=== PATIENT | male | born 1945 | race Caucasian/White ===

== ENCOUNTER 2018-07-06 00:41 | Inpatient (IN) | payer MEDICARE ==
[~2018-07-06] VITALS: Ht 188 cm; Wt 72.7 kg
[2018-07-06] MEDS ORDERED: MAGNESIUM HYDROXIDE 2,400 MG/30 ML ORAL.SUSP. PO PRN (01:00)
[2018-07-06] MEDS ORDERED: METHYL SALICYLATE/MENTHOL TOPICAL OINTMENT 29GM TUBE. TP PRN (01:00)
[2018-07-06] MEDS ORDERED: MAG HYDROX/AL HYDROX/SIMETH 30 ML ORAL.SUSP PO PRN (01:00)
[2018-07-06] MEDS ORDERED: ACETAMINOPHEN 325 MG TABLET PO PRN (01:00)
[2018-07-06] MEDS ORDERED: ALPR0.5T6 PO (01:14)
[2018-07-06] MEDS ORDERED: MEMA10TA PO (01:14)
[2018-07-06] MEDS ORDERED: CITA20TA6 PO (01:14)
[2018-07-06] MEDS ORDERED: OLAN10VI2 IM (01:14)
[2018-07-06] MEDS ORDERED: QUET50TA5 PO (01:14)
[2018-07-06] MEDS ORDERED: HALO5AMP2 IM (01:14)
[2018-07-06] MEDS ORDERED: CETI10TA16 PO (01:14)
[2018-07-06] MEDS ORDERED: DIVA500T17 PO (01:14)
[2018-07-06] MEDS ORDERED: RIVA1PAT22 TD (01:14)
[2018-07-06 01:19] VITALS: BP 176/75
[2018-07-06 05:48] VITALS: BP 164/82
[2018-07-06 08:13] LABS: BASO # 0.1 x10^3/uL (0.0-0.2); BASO % 1 % (0-3); EOS # 0.1 x10^3/uL (0.0-0.7); EOS % 1 % (0-3); HEMATOCRIT 45.3 % (39.0-53.0); HEMOGLOBIN 15.2 g/dL (13.0-17.5); LYMPH # 1.4 x10^3/uL (1.0-4.8); LYMPH % 24 % (24-48); MEAN CORPUSCULAR HEMOGLOBIN 31 pg (25-35); MEAN CORPUSCULAR HGB CONC 34 g/dL (31-37); MEAN CORPUSCULAR VOLUME 91 fL (79-100); MONO # 0.6 x10^3/uL (0.0-1.1); MONO % 9 % (0-9); NEUT # 3.8 x10^3uL (1.8-7.7); NEUT % 65 % (31-73); PLATELET COUNT 87 x10^3/uL (140-400); RED BLOOD COUNT 4.98 x10^6/uL (4.30-5.70); RED CELL DISTRIBUTION WIDTH 13.5 % (11.5-14.5); WHITE BLOOD COUNT 5.9 x10^3/uL (4.0-11.0)
[2018-07-06 08:30] LABS: ALBUMIN 3.5 g/dL (3.4-5.0); ALBUMIN/GLOBULIN RATIO 0.9 (1.0-1.7); CALCIUM 8.8 mg/dL (8.5-10.1); CREATININE 0.8 mg/dL (0.7-1.3); GFR 95.3; MAGNESIUM 2.2 mg/dL (1.8-2.4); POTASSIUM 3.8 mmol/L (3.5-5.1); TOTAL BILIRUBIN 1.2 mg/dL (0.2-1.0); TOTAL PROTEIN 7.2 g/dL (6.4-8.2)
[2018-07-06 08:33] LABS: VAL ACID 42 mcg/mL (50-100)
[2018-07-06] MEDS ORDERED: DIVALPROEX SODIUM 250 MG TABLET.DR. PO SCH (09:00)
[2018-07-06] MEDS: ALPRAZolam 0.5 MG TABLET PO SCH ×3 (09:46→19:45)
[2018-07-06] MEDS: CETIRIZINE HCL 10 MG TABLET PO SCH (09:46)
[2018-07-06] MEDS: MEMANTINE 10 MG TABLET. PO SCH ×2 (09:46→19:45)
[2018-07-06] MEDS: CITALOPRAM 20 MG TABLET. PO SCH (09:46)
[2018-07-06] MEDS: QUEtiapine 50 MG TABLET. PO SCH ×2 (09:46→19:45)
[2018-07-06] MEDS: DIVALPROEX 125 MG CAP.SPRINK PO SCH ×2 (09:47→19:46)
[2018-07-06] MEDS: RIVASTIGMINE 4.6MG PATCH. TD SCH (09:47)
[2018-07-06 10:29] LABS: THYROID STIM HORMONE (TSH) 1.576 uIU/mL (0.358-3.740)
[2018-07-06 13:07] LABS: THYROXINE 6.1 ug/dL (4.5-12.0)
[2018-07-06 14:02] LABS: BACTERIA,URINE 0 /HPF (0-FEW); BILIRUBIN,URINE MOD (NEG); CLARITY,URINE CLEAR; COLOR,URINE AMBER; GLUCOSE,URINE NEG (NEG); HYALINE CASTS, URINE MANY /HPF; NITRITE,URINE NEG (NEG); RBC,URINE 0 /HPF (0-2); UROBILINOGEN,URINE 1 mg/dL (0.2 mg/dL)
[2018-07-06 16:22] VITALS: BP 101/71
--- NOTE | 2018-07-06 19:53 | PDOC ---
Exam Note: Uriah Note: Please also refer to the separate dictated note~for this date of service dictated separately.~Patient seen individually. Discussed the patient with Nursing staff reviewed the chart.~Reviewed interim history and current functioning. Reviewed vital signs,~Labs/ Radiology~and current medications noted below. Continue current treatment with the changes noted in the dictated addendum note Assessment: Vital Signs: Vital Signs Date Time Temp Pulse Resp B/P (MAP) Pulse Ox O2 Delivery O2 Flow Rate FiO2 07/06/18 16:22 97.1 78 16 101/71 (81) 96 Room Air I&O Intake and Output 07/06/18 07:00 # Voids 1 Labs: Laboratory Tests Test 07/06/18 07:55 07/06/18 13:30 White Blood Count 5.9 x10^3/uL (4.0-11.0) Red Blood Count 4.98 x10^6/uL (4.30-5.70) Hemoglobin 15.2 g/dL (13.0-17.5) Hematocrit 45.3 % (39.0-53.0) Mean Corpuscular Volume 91 fL (79-100) Mean Corpuscular Hemoglobin 31 pg (25-35) Mean Corpuscular Hemoglobin Concent 34 g/dL (31-37) Red Cell Distribution Width 13.5 % (11.5-14.5) Platelet Count 87 x10^3/uL (140-400) L Neutrophils (%) (Auto) 65 % (31-73) Lymphocytes (%) (Auto) 24 % (24-48) Monocytes (%) (Auto) 9 % (0-9) Eosinophils (%) (Auto) 1 % (0-3) Basophils (%) (Auto) 1 % (0-3) Neutrophils # (Auto) 3.8 x10^3uL (1.8-7.7) Lymphocytes # (Auto) 1.4 x10^3/uL (1.0-4.8) Monocytes # (Auto) 0.6 x10^3/uL (0.0-1.1) Eosinophils # (Auto) 0.1 x10^3/uL (0.0-0.7) Basophils # (Auto) 0.1 x10^3/uL (0.0-0.2) Sodium Level 144 mmol/L (136-145) Potassium Level 3.8 mmol/L (3.5-5.1) Chloride Level 108 mmol/L (98-107) H Carbon Dioxide Level 27 mmol/L (21-32) Anion Gap 9 (6-14) Blood Urea Nitrogen 12 mg/dL (8-26) Creatinine 0.8 mg/dL (0.7-1.3) Estimated GFR (Cockcroft-Gault) 95.3 BUN/Creatinine Ratio 15 (6-20) Glucose Level 81 mg/dL (70-99) Calcium Level 8.8 mg/dL (8.5-10.1) Magnesium Level 2.2 mg/dL (1.8-2.4) Iron Level 72 ug/dL (65-175) Total Iron Binding Capacity 274 ug/dL (250-450) Iron Saturation 26 % (15-34) Total Bilirubin 1.2 mg/dL (0.2-1.0) H Aspartate Amino Transferase (AST) 115 U/L (15-37) H Alanine Aminotransferase (ALT) 60 U/L (16-63) Alkaline Phosphatase 66 U/L (46-116) Total Protein 7.2 g/dL (6.4-8.2) Albumin 3.5 g/dL (3.4-5.0) Albumin/Globulin Ratio 0.9 (1.0-1.7) L Triglycerides Level 51 mg/dL (0-150) Cholesterol Level 205 mg/dL (0-200) H LDL Cholesterol, Calculated 109 mg/dL (0-100) H VLDL Cholesterol, Calculated 10 mg/dL (0-40) Non-HDL Cholesterol Calculated 119 mg/dL (0-129) HDL Cholesterol 86 mg/dL (40-60) H Cholesterol/HDL Ratio 2.0 Thyroid Stimulating Hormone (TSH) 1.576 uIU/mL (0.358-3.740) Thyroxine (T4) 6.1 ug/dL (4.5-12.0) Total Triiodothyronine (TT3) 73 ng/dL (71-180) Valproic Acid Level 42 mcg/mL (50-100) L Valproic Acid Last Dose Date 07/05/18 Valproic Acid Last Dose Time 2100 Urine Collection Type U cath Urine Color [place] Urine Clarity Clear Urine pH 5.5 Urine Specific [place] >=1.030 Urine Protein Trace (NEG-TRACE) Urine Glucose (UA) Neg mg/dL (NEG) Urine Ketones (Stick) >=160 mg/dL (NEG) Urine Blood Neg (NEG) Urine Nitrite Neg (NEG) Urine Bilirubin Mod (NEG) Urine Urobilinogen Dipstick 1 mg/dL (0.2 mg/dL) Urine Leukocyte Esterase Neg (NEG) Urine RBC 0 /HPF (0-2) Urine WBC 1-4 /HPF (0-4) Urine Squamous Epithelial Cells None /LPF Urine Bacteria 0 /HPF (0-FEW) Urine Hyaline Casts Many /HPF Urine Mucus Marked /LPF Current Medications: Meds: Current Medications Acetaminophen (Tylenol) 650 mg PRN Q6HRS PRN PO PAIN / TEMP; Start 07/06/18 at 01:00 Multi-Ingredient Ointment (Analgesic [place]) 1 lawrence PRN QID PRN TP MUSCLE PAIN; Start 07/06/18 at 01:00 Al Hydroxide/Mg Hydroxide (Mylanta Plus Xs) 15 ml PRN AFTMEALHC PRN PO DYSPEPSIA; Start 07/06/18 at 01:00 Magnesium Hydroxide (Milk Of Magnesia) 2,400 mg PRN QHS PRN PO CONSTIPATION; Start 07/06/18 at 01:00 Citalopram Hydrobromide (CeleXA) 20 mg DAILY PO Last administered on 07/06/18at 09:46; Start 07/06/18 at 09:00 Alprazolam (Xanax) 0.5 mg TID PO Last administered on 07/06/18at 19:45; Start 07/06/18 at 09:00 Divalproex Sodium (Depakote) 500 mg BID PO ; Start 07/06/18 at 09:00; Stop at 09:31; Status DC Memantine (Namenda) 10 mg BID PO Last administered on 07/06/18at 19:45; Start 07/06/18 at 09:00 Quetiapine Fumarate (SEROquel) 50 mg BID PO Last administered on 07/06/18at 19:45 ; Start 07/06/18 at 09:00 Rivastigmine (Exelon) 1 patch DAILY TD Last administered on 07/06/18at 09:47; Start 07/06/18 at 09:00 Cetirizine HCl (ZyrTEC) 10 mg DAILY PO Last administered on 07/06/18at 09:46; Start 07/06/18 at 09:00 Divalproex Sodium (Depakote Sprinkles) 500 mg BID PO Last administered on at 19:46; Start 07/06/18 at 09:45 Olanzapine (ZyPREXA ZYDIS) 2.5 mg PRN Q2HR PRN PO PSYCHOSIS Last administered on 07/06/18at 14:42; Start 07/06/18 at 14:15 Active Scripts Active Reported Olanzapine Inj (Olanzapine) 10 Mg Vial 5 Mg IM PRN Q8HRS PRN Cetirizine Hcl 10 Mg Tablet 10 Mg PO DAILY EXELON 4.6mg/24hr (Rivastigmine) 1 Each Patch.td24 1 Patch TD DAILY Seroquel (Quetiapine Fumarate) 50 Mg Tablet 50 Mg PO BID Namenda (Memantine Hcl) 10 Mg Tablet 10 Mg PO BID Divalproex Sodium Er (Divalproex Sodium) 500 Mg Tab.er.24h 500 Mg PO BID Haldol (Haloperidol Lactate) 5 Mg/1 Ml Ampul 2.5 Mg IM PRN Q6HRS PRN Alprazolam 0.5 Mg Tablet 0.5 Mg PO TID Citalopram Hbr (Citalopram Hydrobromide) 20 Mg Tablet 20 Mg PO DAILY I have reviewed the current psychotropics carefully including drug interactions. Risk benefit ratio favors no change other than as noted in my dictated progress note. Diagnosis: Problems: (1) Anxiety disorder (2) Dementia in Alzheimer's disease with delusions (3) Dementia in Alzheimer's disease with depression (4) Dementia, vascular, with delusions (5) Dementia, vascular, with depression (6) Dementia of the Alzheimer's type with early onset with behavioral disturbance (7) Impulse control disorder SHAW CERRATO MD Jul 06, 2018 19:53
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
[2018-07-07 06:30] VITALS: BP 139/89
[2018-07-07] MEDS: DIVALPROEX 125 MG CAP.SPRINK PO SCH ×2 (09:15→19:44)
[2018-07-07] MEDS: CITALOPRAM 20 MG TABLET. PO SCH (09:15)
[2018-07-07] MEDS: QUEtiapine 50 MG TABLET. PO SCH ×2 (09:16→19:44)
[2018-07-07] MEDS: RIVASTIGMINE 4.6MG PATCH. TD SCH (09:16)
[2018-07-07] MEDS: CETIRIZINE HCL 10 MG TABLET PO SCH (09:16)
[2018-07-07] MEDS: MEMANTINE 10 MG TABLET. PO SCH ×2 (09:16→19:44)
[2018-07-07] MEDS: ALPRAZolam 0.5 MG TABLET PO SCH ×3 (09:16→19:47)
[2018-07-07 13:13] LABS: HEMOGLOBIN A1C 5.2 % (4.8-5.6)
[2018-07-07 16:08] VITALS: BP 122/67
[2018-07-07] MEDS: CHOLECALCIFEROL (VITAMIN D3) 50,000 UNIT CAPSULE PO SCH (17:12)
[2018-07-07] MEDS: hydrOXYzine HCL 25 MG TABLET PO PRN (17:25)
[2018-07-07] MEDS: TAMSULOSIN 0.4 MG CAP.ER.24H. PO SCH (19:47)
--- NOTE | 2018-07-07 21:16 | PDOC ---
Exam Note: Uriah Note: Please also refer to the separate dictated note~for this date of service dictated separately.~Patient seen individually. Discussed the patient with Nursing staff reviewed the chart.~Reviewed interim history and current functioning. Reviewed vital signs,~Labs/ Radiology~and current medications noted below. Continue current treatment with the changes noted in the dictated addendum note Assessment: Vital Signs: Vital Signs Date Time Temp Pulse Resp B/P (MAP) Pulse Ox O2 Delivery O2 Flow Rate FiO2 07/07/18 16:08 97.7 51 18 122/67 (85) 96 07/07/18 06:30 Room Air I&O Intake and Output 07/07/18 07:00 Intake Total 900 ml Balance 900 ml Intake Oral 900 ml Current Medications: Meds: Current Medications Acetaminophen (Tylenol) 650 mg PRN Q6HRS PRN PO PAIN / TEMP; Start 07/06/18 at 01:00 Multi-Ingredient Ointment (Analgesic [place]) 1 lawrence PRN QID PRN TP MUSCLE PAIN; Start 07/06/18 at 01:00 Al Hydroxide/Mg Hydroxide (Mylanta Plus Xs) 15 ml PRN AFTMEALHC PRN PO DYSPEPSIA; Start 07/06/18 at 01:00 Magnesium Hydroxide (Milk Of Magnesia) 2,400 mg PRN QHS PRN PO CONSTIPATION; Start 07/06/18 at 01:00 Citalopram Hydrobromide (CeleXA) 20 mg DAILY PO Last administered on 07/07/18at 09:15; Start 07/06/18 at 09:00 Alprazolam (Xanax) 0.5 mg TID PO Last administered on 07/07/18at 19:47; Start 07/06/18 at 09:00 Divalproex Sodium (Depakote) 500 mg BID PO ; Start 07/06/18 at 09:00; Stop at 09:31; Status DC Memantine (Namenda) 10 mg BID PO Last administered on 07/07/18 19:44; Start 07/06/18 at 09:00 Quetiapine Fumarate (SEROquel) 50 mg BID PO Last administered on 07/07/18 19:44 ; Start 07/06/18 at 09:00 Rivastigmine (Exelon) 1 patch DAILY TD Last administered on 07/07/18 09:16; Start 07/06/18 at 09:00 Cetirizine HCl (ZyrTEC) 10 mg DAILY PO Last administered on 07/07/18 09:16; Start 07/06/18 at 09:00 Divalproex Sodium (Depakote Sprinkles) 500 mg BID PO Last administered on 19:44; Start 07/06/18 at 09:45 Olanzapine (ZyPREXA ZYDIS) 2.5 mg PRN Q2HR PRN PO PSYCHOSIS Last administered on 07/07/18 16:25; Start 07/06/18 at 14:15 Tamsulosin HCl (Flomax) 0.4 mg QHS PO Last administered on 07/07/18 19:47; Start 07/07/18 at 21:00 Vitamin D (Vitamin D3) 50,000 unit WEEKLY PO Last administered on 07/07/18 17: 12; Start 07/07/18 at 14:15 Hydroxyzine HCl (Atarax) 25 mg PRN Q2HR PRN PO ANXIETY / AGITATION Last administered on 07/07/18 17:25; Start 07/07/18 at 16:45 Active Scripts Active Reported Olanzapine Inj (Olanzapine) 10 Mg Vial 5 Mg IM PRN Q8HRS PRN Cetirizine Hcl 10 Mg Tablet 10 Mg PO DAILY EXELON 4.6mg/24hr (Rivastigmine) 1 Each Patch.td24 1 Patch TD DAILY Seroquel (Quetiapine Fumarate) 50 Mg Tablet 50 Mg PO BID Namenda (Memantine Hcl) 10 Mg Tablet 10 Mg PO BID Divalproex Sodium Er (Divalproex Sodium) 500 Mg Tab.er.24h 500 Mg PO BID Haldol (Haloperidol Lactate) 5 Mg/1 Ml Ampul 2.5 Mg IM PRN Q6HRS PRN Alprazolam 0.5 Mg Tablet 0.5 Mg PO TID Citalopram Hbr (Citalopram Hydrobromide) 20 Mg Tablet 20 Mg PO DAILY I have reviewed the current psychotropics carefully including drug interactions. Risk benefit ratio favors no change other than as noted in my dictated progress note. Diagnosis: Problems: (1) Anxiety disorder (2) Dementia in Alzheimer's disease with delusions (3) Dementia in Alzheimer's disease with depression (4) Dementia, vascular, with delusions (5) Dementia, vascular, with depression (6) Dementia of the Alzheimer's type with early onset with behavioral disturbance (7) Impulse control disorder SHAW CERRATO MD Jul 07, 2018 21:16
[2018-07-08] MEDS: CITALOPRAM 20 MG TABLET. PO SCH (08:54)
[2018-07-08] MEDS: RIVASTIGMINE 4.6MG PATCH. TD SCH (08:54)
[2018-07-08] MEDS: DIVALPROEX 125 MG CAP.SPRINK PO SCH ×2 (08:54→20:46)
[2018-07-08] MEDS: MEMANTINE 10 MG TABLET. PO SCH (08:54)
[2018-07-08] MEDS: ALPRAZolam 0.5 MG TABLET PO SCH ×3 (08:54→20:49)
[2018-07-08] MEDS: QUEtiapine 50 MG TABLET. PO SCH ×2 (08:54→20:46)
[2018-07-08] MEDS: CETIRIZINE HCL 10 MG TABLET PO SCH (08:55)
[2018-07-08 16:26] VITALS: BP 116/68
--- NOTE | 2018-07-08 20:44 | PDOC ---
Exam Note: Uriah Note: Please also refer to the separate dictated note~for this date of service dictated separately.~Patient seen individually. Discussed the patient with Nursing staff reviewed the chart.~Reviewed interim history and current functioning. Reviewed vital signs,~Labs/ Radiology~and current medications noted below. Continue current treatment with the changes noted in the dictated addendum note Assessment: Vital Signs: Vital Signs Date Time Temp Pulse Resp B/P (MAP) Pulse Ox O2 Delivery O2 Flow Rate FiO2 07/08/18 16:26 97.0 65 20 116/68 (84) 95 07/07/18 06:30 Room Air I&O Intake and Output 07/08/18 06:59 Intake Total 800 ml Output Total 450 ml Balance 350 ml Intake Oral 800 ml Output Urine Total 450 ml Current Medications: Meds: Current Medications Acetaminophen (Tylenol) 650 mg PRN Q6HRS PRN PO PAIN / TEMP; Start 07/06/18 at 01:00 Multi-Ingredient Ointment (Analgesic [place]) 1 lawrence PRN QID PRN TP MUSCLE PAIN; Start 07/06/18 at 01:00 Al Hydroxide/Mg Hydroxide (Mylanta Plus Xs) 15 ml PRN AFTMEALHC PRN PO DYSPEPSIA; Start 07/06/18 at 01:00 Magnesium Hydroxide (Milk Of Magnesia) 2,400 mg PRN QHS PRN PO CONSTIPATION; Start 07/06/18 at 01:00 Citalopram Hydrobromide (CeleXA) 20 mg DAILY PO Last administered on 07/08/18at 08:54; Start 07/06/18 at 09:00 Alprazolam (Xanax) 0.5 mg TID PO Last administered on 07/08/18at 14:00; Start 07/06/18 at 09:00; Stop 07/08/18 at 17:06; Status DC Divalproex Sodium (Depakote) 500 mg BID PO ; Start 07/06/18 at 09:00; Stop at 09:31; Status DC Memantine (Namenda) 10 mg BID PO Last administered on 07/08/18at 08:54; Start 07/06/18 at 09:00; Stop 07/08/18 at 17:06; Status DC Quetiapine Fumarate (SEROquel) 50 mg BID PO Last administered on 07/08/18 08:54 ; Start 07/06/18 at 09:00; Stop 07/08/18 at 17:06; Status DC Rivastigmine (Exelon) 1 patch DAILY TD Last administered on 07/08/18 08:54; Start 07/06/18 at 09:00; Stop 07/08/18 at 17:06; Status DC Cetirizine HCl (ZyrTEC) 10 mg DAILY PO Last administered on 07/08/18 08:55; Start 07/06/18 at 09:00 Divalproex Sodium (Depakote Sprinkles) 500 mg BID PO Last administered on 08:54; Start 07/06/18 at 09:45 Olanzapine (ZyPREXA ZYDIS) 2.5 mg PRN Q2HR PRN PO PSYCHOSIS Last administered on 07/07/18 16:25; Start 07/06/18 at 14:15 Tamsulosin HCl (Flomax) 0.4 mg QHS PO Last administered on 07/07/18 19:47; Start 07/07/18 at 21:00 Vitamin D (Vitamin D3) 50,000 unit WEEKLY PO Last administered on 07/07/18 17: 12; Start 07/07/18 at 14:15 Hydroxyzine HCl (Atarax) 25 mg PRN Q2HR PRN PO ANXIETY / AGITATION Last administered on 07/07/18 17:25; Start 07/07/18 at 16:45 Alprazolam (Xanax) 0.25 mg QID PO ; Start 07/08/18 at 21:00 Quetiapine Fumarate (SEROquel) 25 mg QID PO ; Start 07/08/18 at 21:00 Active Scripts Active Reported Olanzapine Inj (Olanzapine) 10 Mg Vial 5 Mg IM PRN Q8HRS PRN Cetirizine Hcl 10 Mg Tablet 10 Mg PO DAILY EXELON 4.6mg/24hr (Rivastigmine) 1 Each Patch.td24 1 Patch TD DAILY Seroquel (Quetiapine Fumarate) 50 Mg Tablet 50 Mg PO BID Namenda (Memantine Hcl) 10 Mg Tablet 10 Mg PO BID Divalproex Sodium Er (Divalproex Sodium) 500 Mg Tab.er.24h 500 Mg PO BID Haldol (Haloperidol Lactate) 5 Mg/1 Ml Ampul 2.5 Mg IM PRN Q6HRS PRN Alprazolam 0.5 Mg Tablet 0.5 Mg PO TID Citalopram Hbr (Citalopram Hydrobromide) 20 Mg Tablet 20 Mg PO DAILY I have reviewed the current psychotropics carefully including drug interactions. Risk benefit ratio favors no change other than as noted in my dictated progress note. Diagnosis: Problems: (1) Anxiety disorder (2) Dementia in Alzheimer's disease with delusions (3) Dementia in Alzheimer's disease with depression (4) Dementia, vascular, with delusions (5) Dementia, vascular, with depression (6) Dementia of the Alzheimer's type with early onset with behavioral disturbance (7) Impulse control disorder SHAW CERRATO MD Jul 08, 2018 20:44
[2018-07-08] MEDS: TAMSULOSIN 0.4 MG CAP.ER.24H. PO SCH (20:47)
--- NOTE | 2018-07-09 00:40 | PN ---
DATE: 07/07/2018 PSYCHIATRIC PROGRESS NOTE This is a late entry for 07/07/2018, covers elements not covered in my initial note. SUBJECTIVE: I met with the patient in the evening. The patient remains extremely anxious, restless, confused. Staff had paged me earlier in the day due to his marked anxiety despite Zyprexa and we had started hydroxyzine p.r.n. REVIEW OF SYSTEMS: No CV, , pulmonary, eye, ENT system symptoms on review. Reliability poor. Gait unsteady in wheelchair. MENTAL STATUS EXAM: Oriented to himself. Insight, judgment, recent and remote memory, attention, concentration, fund of knowledge poor, consistent with his diagnosis. IMPRESSION: Major neurocognitive disorder, Alzheimer's, vascular with delusion, depression, behavioral disturbance. Rest unchanged. PLAN: Continue psychotropics from initial note. We may consider tapering the Xanax and stopping Namenda and Exelon patch, making further adjustments post baseline assessment. MAN Nalini CERRATO MD DR: MARY/reed JOB#: [id number] / [id number]
[2018-07-09 06:02] VITALS: BP 141/78
[2018-07-09] MEDS: QUEtiapine 50 MG TABLET. PO SCH ×4 (07:41→20:03)
[2018-07-09] MEDS: ALPRAZolam 0.5 MG TABLET PO SCH ×4 (07:41→20:04)
[2018-07-09] MEDS: CETIRIZINE HCL 10 MG TABLET PO SCH (07:41)
[2018-07-09] MEDS: CITALOPRAM 20 MG TABLET. PO SCH (07:41)
[2018-07-09] MEDS: DIVALPROEX 125 MG CAP.SPRINK PO SCH ×2 (07:42→20:03)
[2018-07-09 16:28] VITALS: BP 110/71
[2018-07-09] MEDS: TAMSULOSIN 0.4 MG CAP.ER.24H. PO SCH (20:03)
[2018-07-09] MEDS: MIRTAZAPINE 7.5 MG TABLET. PO SCH (20:05)
--- NOTE | 2018-07-09 21:13 | PDOC ---
Exam Note: Uriah Note: Please also refer to the separate dictated note~for this date of service dictated separately.~Patient seen individually. Discussed the patient with Nursing staff reviewed the chart.~Reviewed interim history and current functioning. Reviewed vital signs,~Labs/ Radiology~and current medications noted below. Continue current treatment with the changes noted in the dictated addendum note Assessment: Vital Signs: Vital Signs Date Time Temp Pulse Resp B/P (MAP) Pulse Ox O2 Delivery O2 Flow Rate FiO2 07/09/18 16:28 97.7 77 20 110/71 (84) 96 07/07/18 06:30 Room Air I&O Intake and Output 07/09/18 06:59 Intake Total 300 ml Output Total 925 ml Balance -625 ml Intake Oral 300 ml Output Urine Total 925 ml Current Medications: Meds: Current Medications Acetaminophen (Tylenol) 650 mg PRN Q6HRS PRN PO PAIN / TEMP; Start 07/06/18 at 01:00 Multi-Ingredient Ointment (Analgesic Vici) 1 lawrence PRN QID PRN TP MUSCLE PAIN; Start 07/06/18 at 01:00 Al Hydroxide/Mg Hydroxide (Mylanta Plus Xs) 15 ml PRN AFTMEALHC PRN PO DYSPEPSIA; Start 07/06/18 at 01:00 Magnesium Hydroxide (Milk Of Magnesia) 2,400 mg PRN QHS PRN PO CONSTIPATION; Start 07/06/18 at 01:00 Citalopram Hydrobromide (CeleXA) 20 mg DAILY PO Last administered on 07/09/18at 07:41; Start 07/06/18 at 09:00 Alprazolam (Xanax) 0.5 mg TID PO Last administered on 07/08/18at 14:00; Start 07/06/18 at 09:00; Stop 07/08/18 at 17:06; Status DC Divalproex Sodium (Depakote) 500 mg BID PO ; Start 07/06/18 at 09:00; Stop at 09:31; Status DC Memantine (Namenda) 10 mg BID PO Last administered on 07/08/18at 08:54; Start 07/06/18 at 09:00; Stop 07/08/18 at 17:06; Status DC Quetiapine Fumarate (SEROquel) 50 mg BID PO Last administered on 07/08/18 08:54 ; Start 07/06/18 at 09:00; Stop 07/08/18 at 17:06; Status DC Rivastigmine (Exelon) 1 patch DAILY TD Last administered on 07/08/18 08:54; Start 07/06/18 at 09:00; Stop 07/08/18 at 17:06; Status DC Cetirizine HCl (ZyrTEC) 10 mg DAILY PO Last administered on 07/09/18 07:41; Start 07/06/18 at 09:00 Divalproex Sodium (Depakote Sprinkles) 500 mg BID PO Last administered on 20:03; Start 07/06/18 at 09:45 Olanzapine (ZyPREXA ZYDIS) 2.5 mg PRN Q2HR PRN PO PSYCHOSIS Last administered on 07/08/18 22:50; Start 07/06/18 at 14:15 Tamsulosin HCl (Flomax) 0.4 mg QHS PO Last administered on 07/09/18 20:03; Start 07/07/18 at 21:00 Vitamin D (Vitamin D3) 50,000 unit WEEKLY PO Last administered on 07/07/18 17: 12; Start 07/07/18 at 14:15 Hydroxyzine HCl (Atarax) 25 mg PRN Q2HR PRN PO ANXIETY / AGITATION Last administered on 07/07/18 17:25; Start 07/07/18 at 16:45 Alprazolam (Xanax) 0.25 mg QID PO Last administered on 07/09/18 20:04; Start at 21:00 Quetiapine Fumarate (SEROquel) 25 mg QID PO Last administered on 07/09/18 20:03 ; Start 07/08/18 at 21:00 Mirtazapine (Remeron) 7.5 mg QHS PO Last administered on 07/09/18 20:05; Start 07/09/18 at 21:00 Active Scripts Active Reported Olanzapine Inj (Olanzapine) 10 Mg Vial 5 Mg IM PRN Q8HRS PRN Cetirizine Hcl 10 Mg Tablet 10 Mg PO DAILY EXELON 4.6mg/24hr (Rivastigmine) 1 Each Patch.td24 1 Patch TD DAILY Seroquel (Quetiapine Fumarate) 50 Mg Tablet 50 Mg PO BID Namenda (Memantine Hcl) 10 Mg Tablet 10 Mg PO BID Divalproex Sodium Er (Divalproex Sodium) 500 Mg Tab.er.24h 500 Mg PO BID Haldol (Haloperidol Lactate) 5 Mg/1 Ml Ampul 2.5 Mg IM PRN Q6HRS PRN Alprazolam 0.5 Mg Tablet 0.5 Mg PO TID Citalopram Hbr (Citalopram Hydrobromide) 20 Mg Tablet 20 Mg PO DAILY I have reviewed the current psychotropics carefully including drug interactions. Risk benefit ratio favors no change other than as noted in my dictated progress note. Diagnosis: Problems: (1) Anxiety disorder (2) Dementia in Alzheimer's disease with delusions (3) Dementia in Alzheimer's disease with depression (4) Dementia, vascular, with delusions (5) Dementia, vascular, with depression (6) Dementia of the Alzheimer's type with early onset with behavioral disturbance (7) Impulse control disorder SHAW CERRATO MD Jul 09, 2018 21:13
--- NOTE | 2018-07-09 22:49 | PN ---
DATE: 07/08/2018 PSYCHIATRIC PROGRESS NOTE This is a late entry, 07/08, covers the elements not covered in my initial note. SUBJECTIVE: I met with the patient in the evening. The patient remains on one-on-one status because of fall risk. He is not being combative, remains quite confused. REVIEW OF SYSTEMS: No CV, , pulmonary, eye, ENT system symptoms on review. Reliability poor. MENTAL STATUS EXAM: Oriented to himself. Insight, judgment, recent and remote memory, attention, concentration, fund of knowledge poor, consistent with his diagnosis. He slept 5-1/2 hours previous evening. LABORATORY DATA: Reviewed. IMPRESSION: Major neurocognitive disorder, Alzheimer, vascular with delusion, depression, behavioral disturbance. Rest unchanged. PLAN: Discontinue the Exelon patch, Seroquel is 50 mg b.i.d., we will change to 25 mg 4 times a day, Xanax 0.5 mg t.i.d., reduce to 0.25 mg 4 times a day and gradually taper thereafter. Zyprexa is 5 mg b.i.d., will reduce to 2.5 mg twice a day and stop the Namenda and the Exelon patch probably have little beneficial effect given the extent of his dementia for now. Reviewed at some length. SHAW CERRATO MD DR: MARY/reed JOB#: [id number] / [id number]
[2018-07-10] MEDS: QUEtiapine 50 MG TABLET. PO SCH ×4 (09:21→19:30)
[2018-07-10] MEDS: DIVALPROEX 125 MG CAP.SPRINK PO SCH ×2 (09:21→19:30)
[2018-07-10] MEDS: CETIRIZINE HCL 10 MG TABLET PO SCH (09:21)
[2018-07-10] MEDS: CITALOPRAM 20 MG TABLET. PO SCH (09:22)
[2018-07-10] MEDS: ALPRAZolam 0.5 MG TABLET PO SCH ×4 (09:23→19:31)
[2018-07-10 09:35] VITALS: BP 104/60
[2018-07-10 15:50] VITALS: BP 96/63
[2018-07-10] MEDS: TAMSULOSIN 0.4 MG CAP.ER.24H. PO SCH (19:30)
[2018-07-10] MEDS: MIRTAZAPINE 7.5 MG TABLET. PO SCH (19:30)
--- NOTE | 2018-07-10 20:33 | PDOC ---
Exam Note: Uriah Note: Please also refer to the separate dictated note~for this date of service dictated separately.~Patient seen individually. Discussed the patient with Nursing staff reviewed the chart.~Reviewed interim history and current functioning. Reviewed vital signs,~Labs/ Radiology~and current medications noted below. Continue current treatment with the changes noted in the dictated addendum note Assessment: Vital Signs: Vital Signs Date Time Temp Pulse Resp B/P (MAP) Pulse Ox O2 Delivery O2 Flow Rate FiO2 07/10/18 15:50 97.9 74 20 96/63 (74) 96 Room Air I&O Intake and Output 07/10/18 07:00 Intake Total 480 ml Output Total 250 ml Balance 230 ml Intake Oral 480 ml Output Urine Total 250 ml # Voids 1 Current Medications: Meds: Current Medications Acetaminophen (Tylenol) 650 mg PRN Q6HRS PRN PO PAIN / TEMP; Start 07/06/18 at 01:00 Multi-Ingredient Ointment (Analgesic [place]) 1 lawrence PRN QID PRN TP MUSCLE PAIN; Start 07/06/18 at 01:00 Al Hydroxide/Mg Hydroxide (Mylanta Plus Xs) 15 ml PRN AFTMEALHC PRN PO DYSPEPSIA; Start 07/06/18 at 01:00 Magnesium Hydroxide (Milk Of Magnesia) 2,400 mg PRN QHS PRN PO CONSTIPATION; Start 07/06/18 at 01:00 Citalopram Hydrobromide (CeleXA) 20 mg DAILY PO Last administered on 07/10/18at 09:22; Start 07/06/18 at 09:00 Alprazolam (Xanax) 0.5 mg TID PO Last administered on 07/08/18at 14:00; Start 07/06/18 at 09:00; Stop 07/08/18 at 17:06; Status DC Divalproex Sodium (Depakote) 500 mg BID PO ; Start 07/06/18 at 09:00; Stop at 09:31; Status DC Memantine (Namenda) 10 mg BID PO Last administered on 07/08/18at 08:54; Start 07/06/18 at 09:00; Stop 07/08/18 at 17:06; Status DC Quetiapine Fumarate (SEROquel) 50 mg BID PO Last administered on 8/7/18at 08:54 ; Start 07/06/18 at 09:00; Stop 07/08/18 at 17:06; Status DC Rivastigmine (Exelon) 1 patch DAILY TD Last administered on 07/08/18 08:54; Start 07/06/18 at 09:00; Stop 07/08/18 at 17:06; Status DC Cetirizine HCl (ZyrTEC) 10 mg DAILY PO Last administered on 07/10/18 09:21; Start 07/06/18 at 09:00 Divalproex Sodium (Depakote Sprinkles) 500 mg BID PO Last administered on 19:30; Start 07/06/18 at 09:45 Olanzapine (ZyPREXA ZYDIS) 2.5 mg PRN Q2HR PRN PO PSYCHOSIS Last administered on 07/10/18 01:12; Start 07/06/18 at 14:15 Tamsulosin HCl (Flomax) 0.4 mg QHS PO Last administered on 07/10/18 19:30; Start 07/07/18 at 21:00 Vitamin D (Vitamin D3) 50,000 unit WEEKLY PO Last administered on 07/07/18 17: 12; Start 07/07/18 at 14:15 Hydroxyzine HCl (Atarax) 25 mg PRN Q2HR PRN PO ANXIETY / AGITATION Last administered on 07/07/18 17:25; Start 07/07/18 at 16:45 Alprazolam (Xanax) 0.25 mg QID PO Last administered on 07/10/18 19:31; Start at 21:00 Quetiapine Fumarate (SEROquel) 25 mg QID PO Last administered on 07/10/18 19:30 ; Start 07/08/18 at 21:00 Mirtazapine (Remeron) 7.5 mg QHS PO Last administered on 07/10/18 19:30; Start 07/09/18 at 21:00 Active Scripts Active Reported Olanzapine Inj (Olanzapine) 10 Mg Vial 5 Mg IM PRN Q8HRS PRN Cetirizine Hcl 10 Mg Tablet 10 Mg PO DAILY EXELON 4.6mg/24hr (Rivastigmine) 1 Each Patch.td24 1 Patch TD DAILY Seroquel (Quetiapine Fumarate) 50 Mg Tablet 50 Mg PO BID Namenda (Memantine Hcl) 10 Mg Tablet 10 Mg PO BID Divalproex Sodium Er (Divalproex Sodium) 500 Mg Tab.er.24h 500 Mg PO BID Haldol (Haloperidol Lactate) 5 Mg/1 Ml Ampul 2.5 Mg IM PRN Q6HRS PRN Alprazolam 0.5 Mg Tablet 0.5 Mg PO TID Citalopram Hbr (Citalopram Hydrobromide) 20 Mg Tablet 20 Mg PO DAILY I have reviewed the current psychotropics carefully including drug interactions. Risk benefit ratio favors no change other than as noted in my dictated progress note. Diagnosis: Problems: (1) Anxiety disorder (2) Dementia in Alzheimer's disease with delusions (3) Dementia in Alzheimer's disease with depression (4) Dementia, vascular, with delusions (5) Dementia, vascular, with depression (6) Dementia of the Alzheimer's type with early onset with behavioral disturbance (7) Impulse control disorder SHAW CERRATO MD Jul 10, 2018 20:32
[2018-07-11 06:40] VITALS: BP 145/74
[2018-07-11] MEDS: CITALOPRAM 20 MG TABLET. PO SCH (07:43)
[2018-07-11] MEDS: QUEtiapine 50 MG TABLET. PO SCH ×4 (07:43→20:40)
[2018-07-11] MEDS: CETIRIZINE HCL 10 MG TABLET PO SCH (07:43)
[2018-07-11] MEDS: DIVALPROEX 125 MG CAP.SPRINK PO SCH ×2 (07:44→20:40)
[2018-07-11] MEDS: ALPRAZolam 0.5 MG TABLET PO SCH ×4 (07:47→20:41)
[2018-07-11 08:10] LABS: ALBUMIN 2.9 g/dL (3.4-5.0); ALBUMIN/GLOBULIN RATIO 0.9 (1.0-1.7); CALCIUM 8.6 mg/dL (8.5-10.1); CREATININE 0.8 mg/dL (0.7-1.3); GFR 95.3; POTASSIUM 3.5 mmol/L (3.5-5.1); TOTAL BILIRUBIN 0.7 mg/dL (0.2-1.0); TOTAL PROTEIN 6.3 g/dL (6.4-8.2)
[2018-07-11 09:34] LABS: BASO % 1 % (0-3); EOS # 0.1 x10^3/uL (0.0-0.7); EOS % 2 % (0-3); HEMATOCRIT 41.7 % (39.0-53.0); LYMPH # 1.4 x10^3/uL (1.0-4.8); LYMPH % 29 % (24-48); MEAN CORPUSCULAR HEMOGLOBIN 30 pg (25-35); MEAN CORPUSCULAR HGB CONC 34 g/dL (31-37); MEAN CORPUSCULAR VOLUME 90 fL (79-100); MONO # 0.5 x10^3/uL (0.0-1.1); MONO % 11 % (0-9); NEUT # 2.7 x10^3uL (1.8-7.7); NEUT % 58 % (31-73); PLATELET COUNT 87 x10^3/uL (140-400); RED BLOOD COUNT 4.62 x10^6/uL (4.30-5.70); RED CELL DISTRIBUTION WIDTH 13.4 % (11.5-14.5); WHITE BLOOD COUNT 4.7 x10^3/uL (4.0-11.0)
[2018-07-11 09:41] LABS: VAL ACID 72 mcg/mL (50-100)
[2018-07-11 16:25] VITALS: BP 106/69
[2018-07-11] MEDS: TAMSULOSIN 0.4 MG CAP.ER.24H. PO SCH (20:40)
[2018-07-11] MEDS: MIRTAZAPINE 7.5 MG TABLET. PO SCH (20:40)
--- NOTE | 2018-07-11 20:57 | PDOC ---
Exam Note: Uriah Note: Please also refer to the separate dictated note~for this date of service dictated separately.~Patient seen individually. Discussed the patient with Nursing staff reviewed the chart.~Reviewed interim history and current functioning. Reviewed vital signs,~Labs/ Radiology~and current medications noted below. Continue current treatment with the changes noted in the dictated addendum note Assessment: Vital Signs: Vital Signs Date Time Temp Pulse Resp B/P (MAP) Pulse Ox O2 Delivery O2 Flow Rate FiO2 07/11/18 16:25 97.5 66 18 106/69 (81) 99 07/10/18 15:50 Room Air I&O Intake and Output 07/11/18 07:00 Intake Total 840 ml Output Total 350 ml Balance 490 ml Intake Oral 840 ml Output Urine Total 350 ml Labs: Laboratory Tests Test 07/11/18 07:13 White Blood Count 4.7 x10^3/uL (4.0-11.0) Red Blood Count 4.62 x10^6/uL (4.30-5.70) Hemoglobin 14.0 g/dL (13.0-17.5) Hematocrit 41.7 % (39.0-53.0) Mean Corpuscular Volume 90 fL (79-100) Mean Corpuscular Hemoglobin 30 pg (25-35) Mean Corpuscular Hemoglobin Concent 34 g/dL (31-37) Red Cell Distribution Width 13.4 % (11.5-14.5) Platelet Count 87 x10^3/uL (140-400) L Neutrophils (%) (Auto) 58 % (31-73) Lymphocytes (%) (Auto) 29 % (24-48) Monocytes (%) (Auto) 11 % (0-9) H Eosinophils (%) (Auto) 2 % (0-3) Basophils (%) (Auto) 1 % (0-3) Neutrophils # (Auto) 2.7 x10^3uL (1.8-7.7) Lymphocytes # (Auto) 1.4 x10^3/uL (1.0-4.8) Monocytes # (Auto) 0.5 x10^3/uL (0.0-1.1) Eosinophils # (Auto) 0.1 x10^3/uL (0.0-0.7) Basophils # (Auto) 0.0 x10^3/uL (0.0-0.2) Sodium Level 147 mmol/L (136-145) H Potassium Level 3.5 mmol/L (3.5-5.1) Chloride Level 110 mmol/L (98-107) H Carbon Dioxide Level 32 mmol/L (21-32) Anion Gap 5 (6-14) L Blood Urea Nitrogen 22 mg/dL (8-26) Creatinine 0.8 mg/dL (0.7-1.3) Estimated GFR (Cockcroft-Gault) 95.3 BUN/Creatinine Ratio 28 (6-20) H Glucose Level 92 mg/dL (70-99) Calcium Level 8.6 mg/dL (8.5-10.1) Total Bilirubin 0.7 mg/dL (0.2-1.0) Aspartate Amino Transferase (AST) 40 U/L (15-37) H Alanine Aminotransferase (ALT) 48 U/L (16-63) Alkaline Phosphatase 54 U/L (46-116) Total Protein 6.3 g/dL (6.4-8.2) L Albumin 2.9 g/dL (3.4-5.0) L Albumin/Globulin Ratio 0.9 (1.0-1.7) L Valproic Acid Level 72 mcg/mL (50-100) Valproic Acid Last Dose Date 07/10/18 Valproic Acid Last Dose Time 2100 Current Medications: Meds: Current Medications Acetaminophen (Tylenol) 650 mg PRN Q6HRS PRN PO PAIN / TEMP; Start 07/06/18 at 01:00 Multi-Ingredient Ointment (Analgesic Benedict) 1 lawrence PRN QID PRN TP MUSCLE PAIN; Start 07/06/18 at 01:00 Al Hydroxide/Mg Hydroxide (Mylanta Plus Xs) 15 ml PRN AFTMEALHC PRN PO DYSPEPSIA; Start 07/06/18 at 01:00 Magnesium Hydroxide (Milk Of Magnesia) 2,400 mg PRN QHS PRN PO CONSTIPATION; Start 07/06/18 at 01:00 Citalopram Hydrobromide (CeleXA) 20 mg DAILY PO Last administered on 07/11/18at 07:43; Start 07/06/18 at 09:00 Alprazolam (Xanax) 0.5 mg TID PO Last administered on 07/08/18at 14:00; Start 07/06/18 at 09:00; Stop 07/08/18 at 17:06; Status DC Divalproex Sodium (Depakote) 500 mg BID PO ; Start 07/06/18 at 09:00; Stop at 09:31; Status DC Memantine (Namenda) 10 mg BID PO Last administered on 07/08/18at 08:54; Start 07/06/18 at 09:00; Stop 07/08/18 at 17:06; Status DC Quetiapine Fumarate (SEROquel) 50 mg BID PO Last administered on 07/08/18 08:54 ; Start 07/06/18 at 09:00; Stop 07/08/18 at 17:06; Status DC Rivastigmine (Exelon) 1 patch DAILY TD Last administered on 07/08/18 08:54; Start 07/06/18 at 09:00; Stop 07/08/18 at 17:06; Status DC Cetirizine HCl (ZyrTEC) 10 mg DAILY PO Last administered on 07/11/18at 07:43; Start 07/06/18 at 09:00 Divalproex Sodium (Depakote Sprinkles) 500 mg BID PO Last administered on 20:40; Start 07/06/18 at 09:45 Olanzapine (ZyPREXA ZYDIS) 2.5 mg PRN Q2HR PRN PO PSYCHOSIS Last administered on 07/10/18 01:12; Start 07/06/18 at 14:15 Tamsulosin HCl (Flomax) 0.4 mg QHS PO Last administered on 07/10/18 19:30; Start 07/07/18 at 21:00; Stop 07/11/18 at 18:51; Status DC Vitamin D (Vitamin D3) 50,000 unit WEEKLY PO Last administered on 07/07/18 17: 12; Start 07/07/18 at 14:15 Hydroxyzine HCl (Atarax) 25 mg PRN Q2HR PRN PO ANXIETY / AGITATION Last administered on 07/07/18 17:25; Start 07/07/18 at 16:45 Alprazolam (Xanax) 0.25 mg QID PO Last administered on 07/11/18at 20:41; Start 07/08/18 at 21:00 Quetiapine Fumarate (SEROquel) 25 mg QID PO Last administered on 07/11/18at 20: 40; Start 07/08/18 at 21:00 Mirtazapine (Remeron) 7.5 mg QHS PO Last administered on 07/11/18at 20:40; Start 07/09/18 at 21:00 Tamsulosin HCl (Flomax) 0.8 mg QHS PO Last administered on 07/11/18at 20:40; Start 07/11/18 at 21:00 Active Scripts Active Reported Olanzapine Inj (Olanzapine) 10 Mg Vial 5 Mg IM PRN Q8HRS PRN Cetirizine Hcl 10 Mg Tablet 10 Mg PO DAILY EXELON 4.6mg/24hr (Rivastigmine) 1 Each Patch.td24 1 Patch TD DAILY Seroquel (Quetiapine Fumarate) 50 Mg Tablet 50 Mg PO BID Namenda (Memantine Hcl) 10 Mg Tablet 10 Mg PO BID Divalproex Sodium Er (Divalproex Sodium) 500 Mg Tab.er.24h 500 Mg PO BID Haldol (Haloperidol Lactate) 5 Mg/1 Ml Ampul 2.5 Mg IM PRN Q6HRS PRN Alprazolam 0.5 Mg Tablet 0.5 Mg PO TID Citalopram Hbr (Citalopram Hydrobromide) 20 Mg Tablet 20 Mg PO DAILY I have reviewed the current psychotropics carefully including drug interactions. Risk benefit ratio favors no change other than as noted in my dictated progress note. Diagnosis: Problems: (1) Anxiety disorder (2) Dementia in Alzheimer's disease with delusions (3) Dementia in Alzheimer's disease with depression (4) Dementia, vascular, with delusions (5) Dementia, vascular, with depression (6) Dementia of the Alzheimer's type with early onset with behavioral disturbance (7) Impulse control disorder SHAW CERRATO MD Jul 11, 2018 20:57
--- NOTE | 2018-07-11 21:27 | PN ---
DATE: 07/09/2018 PSYCHIATRIC PROGRESS NOTE This late entry 07/09/2018 covers elements not covered in my initial note. SUBJECTIVE: Met with the patient in the evening. The patient remains on one-on-one status. Slept 4 hours previous evening. Trying to get out of his chair, does redirect, takes his medications crushed. His visited. REVIEW OF SYSTEMS: No CV, , pulmonary, eye, ENT system symptoms on review. Reliability poor. MENTAL STATUS EXAM: Oriented to himself. Insight, judgment, recent and remote memory, attention, concentration, fund of is knowledge poor, consistent with his diagnoses mentioned in my initial note. PLAN: Add Remeron 7.5 mg p.o. at bedtime to help with insomnia and anxiety. Namenda will be stopped. Maintain Xanax, which we will gradually taper. Stop the Exelon patch. Continue Celexa, Depakote, Zyprexa at current dosage, may taper that as well as he is on Seroquel along with Atarax, which is p.r.n. MAN Nalini CERRATO MD DR: MARY/reed JOB#: [id number] / [id number]
--- NOTE | 2018-07-11 21:30 | PN ---
DATE: 07/10/2018 PSYCHIATRIC PROGRESS NOTE This is a late entry for 07/10/2018, covers elements not covered in my initial note. SUBJECTIVE: I met with the patient in the evening, staffed a treatment team meeting with the entire team in the morning and the patient's , and the 's friend attended the conference. Lengthy discussion about the patient's history, onset of symptoms in 2000, finally diagnosed by primary care physician in 2012, but symptoms noted in 2010 by the PCP as well. He was initially started on Namenda in 2011. Slept for 3/4 hours previous evening. He started on Flomax, catheter has been removed per Dr. Nielson. Remains anxious, restless, confused. Ambulation impaired. REVIEW OF SYSTEMS: No CV, , pulmonary, eye, ENT system symptoms on review. MENTAL STATUS EXAM: Oriented to himself. Insight, judgment, recent and remote memory, attention, concentration, fund of knowledge poor, consistent with his diagnosis mentioned in my initial note. IMPRESSION: Major neurocognitive disorder, Alzheimer, vascular with delusion, depression, behavioral disturbance. Rest unchanged. PLAN: Continue psychotropics from initial note. Lengthy discussion with family about prognosis, treatment, disposition plan. SHAW CERRATO MD DR: MARY/reed JOB#: [id number] / [id number]
[2018-07-11] MEDS: hydrOXYzine HCL 25 MG TABLET PO PRN (22:24)
[2018-07-12 06:52] VITALS: BP 122/70
[2018-07-12] MEDS: QUEtiapine 50 MG TABLET. PO SCH ×4 (08:07→20:14)
[2018-07-12] MEDS: CETIRIZINE HCL 10 MG TABLET PO SCH (08:07)
[2018-07-12] MEDS: DIVALPROEX 125 MG CAP.SPRINK PO SCH ×2 (08:15→20:02)
[2018-07-12] MEDS: CITALOPRAM 20 MG TABLET. PO SCH (08:15)
[2018-07-12] MEDS: ALPRAZolam 0.5 MG TABLET PO SCH ×4 (08:16→20:17)
[2018-07-12 16:51] VITALS: BP 115/74
[2018-07-12] MEDS: MIRTAZAPINE 7.5 MG TABLET. PO SCH (20:14)
[2018-07-12] MEDS: TAMSULOSIN 0.4 MG CAP.ER.24H. PO SCH (20:14)
--- NOTE | 2018-07-12 23:15 | PDOC ---
Exam Note: Uriah Note: Please also refer to the separate dictated note~for this date of service dictated separately.~Patient seen individually. Discussed the patient with Nursing staff reviewed the chart.~Reviewed interim history and current functioning. Reviewed vital signs,~Labs/ Radiology~and current medications noted below. Continue current treatment with the changes noted in the dictated addendum note Assessment: Vital Signs: Vital Signs Date Time Temp Pulse Resp B/P (MAP) Pulse Ox O2 Delivery O2 Flow Rate FiO2 07/12/18 16:51 97.8 72 18 115/74 (88) 100 07/10/18 15:50 Room Air I&O Intake and Output 07/12/18 07:00 Intake Total 420 ml Output Total 225 ml Balance 195 ml Intake Oral 420 ml Output Urine Total 225 ml Current Medications: Meds: Current Medications Acetaminophen (Tylenol) 650 mg PRN Q6HRS PRN PO PAIN / TEMP; Start 07/06/18 at 01:00 Multi-Ingredient Ointment (Analgesic [place]) 1 lawrence PRN QID PRN TP MUSCLE PAIN; Start 07/06/18 at 01:00 Al Hydroxide/Mg Hydroxide (Mylanta Plus Xs) 15 ml PRN AFTMEALHC PRN PO DYSPEPSIA; Start 07/06/18 at 01:00 Magnesium Hydroxide (Milk Of Magnesia) 2,400 mg PRN QHS PRN PO CONSTIPATION; Start 07/06/18 at 01:00 Citalopram Hydrobromide (CeleXA) 20 mg DAILY PO Last administered on 07/12/18at 08:15; Start 07/06/18 at 09:00 Alprazolam (Xanax) 0.5 mg TID PO Last administered on 07/08/18at 14:00; Start 07/06/18 at 09:00; Stop 07/08/18 at 17:06; Status DC Divalproex Sodium (Depakote) 500 mg BID PO ; Start 07/06/18 at 09:00; Stop at 09:31; Status DC Memantine (Namenda) 10 mg BID PO Last administered on 07/08/18at 08:54; Start 07/06/18 at 09:00; Stop 07/08/18 at 17:06; Status DC Quetiapine Fumarate (SEROquel) 50 mg BID PO Last administered on 07/08/18 08:54 ; Start 07/06/18 at 09:00; Stop 07/08/18 at 17:06; Status DC Rivastigmine (Exelon) 1 patch DAILY TD Last administered on 07/08/18 08:54; Start 07/06/18 at 09:00; Stop 07/08/18 at 17:06; Status DC Cetirizine HCl (ZyrTEC) 10 mg DAILY PO Last administered on 07/12/18 08:07; Start 07/06/18 at 09:00 Divalproex Sodium (Depakote Sprinkles) 500 mg BID PO Last administered on 20:02; Start 07/06/18 at 09:45 Olanzapine (ZyPREXA ZYDIS) 2.5 mg PRN Q2HR PRN PO PSYCHOSIS Last administered on 07/10/18 01:12; Start 07/06/18 at 14:15 Tamsulosin HCl (Flomax) 0.4 mg QHS PO Last administered on 07/10/18 19:30; Start 07/07/18 at 21:00; Stop 07/11/18 at 18:51; Status DC Vitamin D (Vitamin D3) 50,000 unit WEEKLY PO Last administered on 07/07/18 17: 12; Start 07/07/18 at 14:15 Hydroxyzine HCl (Atarax) 25 mg PRN Q2HR PRN PO ANXIETY / AGITATION Last administered on 07/11/18 22:24; Start 07/07/18 at 16:45 Alprazolam (Xanax) 0.25 mg QID PO Last administered on 07/12/18 20:17; Start 07/08/18 at 21:00 Quetiapine Fumarate (SEROquel) 25 mg QID PO Last administered on 07/12/18 20: 14; Start 07/08/18 at 21:00 Mirtazapine (Remeron) 7.5 mg QHS PO Last administered on 07/12/18 20:14; Start 07/09/18 at 21:00 Tamsulosin HCl (Flomax) 0.8 mg QHS PO Last administered on 07/12/18 20:14; Start 07/11/18 at 21:00 Active Scripts Active Reported Olanzapine Inj (Olanzapine) 10 Mg Vial 5 Mg IM PRN Q8HRS PRN Cetirizine Hcl 10 Mg Tablet 10 Mg PO DAILY EXELON 4.6mg/24hr (Rivastigmine) 1 Each Patch.td24 1 Patch TD DAILY Seroquel (Quetiapine Fumarate) 50 Mg Tablet 50 Mg PO BID Namenda (Memantine Hcl) 10 Mg Tablet 10 Mg PO BID Divalproex Sodium Er (Divalproex Sodium) 500 Mg Tab.er.24h 500 Mg PO BID Haldol (Haloperidol Lactate) 5 Mg/1 Ml Ampul 2.5 Mg IM PRN Q6HRS PRN Alprazolam 0.5 Mg Tablet 0.5 Mg PO TID Citalopram Hbr (Citalopram Hydrobromide) 20 Mg Tablet 20 Mg PO DAILY I have reviewed the current psychotropics carefully including drug interactions. Risk benefit ratio favors no change other than as noted in my dictated progress note. Diagnosis: Problems: (1) Anxiety disorder (2) Dementia in Alzheimer's disease with delusions (3) Dementia in Alzheimer's disease with depression (4) Dementia, vascular, with delusions (5) Dementia, vascular, with depression (6) Dementia of the Alzheimer's type with early onset with behavioral disturbance (7) Impulse control disorder SHAW CERRATO MD Jul 12, 2018 23:15
[2018-07-13] MEDS: QUEtiapine 50 MG TABLET. PO SCH ×4 (08:18→21:18)
[2018-07-13] MEDS: DIVALPROEX 125 MG CAP.SPRINK PO SCH ×2 (08:18→21:19)
[2018-07-13] MEDS: CETIRIZINE HCL 10 MG TABLET PO SCH (08:18)
[2018-07-13] MEDS: CITALOPRAM 20 MG TABLET. PO SCH (08:18)
[2018-07-13] MEDS: ALPRAZolam 0.5 MG TABLET PO SCH ×4 (08:19→21:19)
[2018-07-13 16:12] VITALS: BP 97/59
--- NOTE | 2018-07-13 20:17 | PDOC ---
Exam Note: Uriah Note: Please also refer to the separate dictated note~for this date of service dictated separately.~Patient seen individually. Discussed the patient with Nursing staff reviewed the chart.~Reviewed interim history and current functioning. Reviewed vital signs,~Labs/ Radiology~and current medications noted below. Continue current treatment with the changes noted in the dictated addendum note Assessment: Vital Signs: Vital Signs Date Time Temp Pulse Resp B/P (MAP) Pulse Ox O2 Delivery O2 Flow Rate FiO2 07/13/18 16:12 97.7 83 18 97/59 (72) 92 07/10/18 15:50 Room Air I&O Intake and Output 07/13/18 06:59 Intake Total 520 ml Output Total 800 ml Balance -280 ml Intake Oral 520 ml Output Urine Total 800 ml Current Medications: Meds: Current Medications Acetaminophen (Tylenol) 650 mg PRN Q6HRS PRN PO PAIN / TEMP; Start 07/06/18 at 01:00 Multi-Ingredient Ointment (Analgesic [place]) 1 lawrence PRN QID PRN TP MUSCLE PAIN; Start 07/06/18 at 01:00 Al Hydroxide/Mg Hydroxide (Mylanta Plus Xs) 15 ml PRN AFTMEALHC PRN PO DYSPEPSIA; Start 07/06/18 at 01:00 Magnesium Hydroxide (Milk Of Magnesia) 2,400 mg PRN QHS PRN PO CONSTIPATION; Start 07/06/18 at 01:00 Citalopram Hydrobromide (CeleXA) 20 mg DAILY PO Last administered on 07/13/18at 08:18; Start 07/06/18 at 09:00 Alprazolam (Xanax) 0.5 mg TID PO Last administered on 07/08/18at 14:00; Start 07/06/18 at 09:00; Stop 07/08/18 at 17:06; Status DC Divalproex Sodium (Depakote) 500 mg BID PO ; Start 07/06/18 at 09:00; Stop at 09:31; Status DC Memantine (Namenda) 10 mg BID PO Last administered on 07/08/18at 08:54; Start 07/06/18 at 09:00; Stop 07/08/18 at 17:06; Status DC Quetiapine Fumarate (SEROquel) 50 mg BID PO Last administered on 07/08/18 08:54 ; Start 07/06/18 at 09:00; Stop 07/08/18 at 17:06; Status DC Rivastigmine (Exelon) 1 patch DAILY TD Last administered on 07/08/18 08:54; Start 07/06/18 at 09:00; Stop 07/08/18 at 17:06; Status DC Cetirizine HCl (ZyrTEC) 10 mg DAILY PO Last administered on 07/13/18 08:18; Start 07/06/18 at 09:00 Divalproex Sodium (Depakote Sprinkles) 500 mg BID PO Last administered on 08:18; Start 07/06/18 at 09:45 Olanzapine (ZyPREXA ZYDIS) 2.5 mg PRN Q2HR PRN PO PSYCHOSIS Last administered on 07/13/18 11:05; Start 07/06/18 at 14:15 Tamsulosin HCl (Flomax) 0.4 mg QHS PO Last administered on 07/10/18 19:30; Start 07/07/18 at 21:00; Stop 07/11/18 at 18:51; Status DC Vitamin D (Vitamin D3) 50,000 unit WEEKLY PO Last administered on 07/07/18 17: 12; Start 07/07/18 at 14:15 Hydroxyzine HCl (Atarax) 25 mg PRN Q2HR PRN PO ANXIETY / AGITATION Last administered on 07/11/18at 22:24; Start 07/07/18 at 16:45 Alprazolam (Xanax) 0.25 mg QID PO Last administered on 07/13/18at 18:13; Start 07/08/18 at 21:00 Quetiapine Fumarate (SEROquel) 25 mg QID PO Last administered on 07/13/18 18: 13; Start 07/08/18 at 21:00 Mirtazapine (Remeron) 7.5 mg QHS PO Last administered on 07/12/18at 20:14; Start 07/09/18 at 21:00 Tamsulosin HCl (Flomax) 0.8 mg QHS PO Last administered on 07/12/18 20:14; Start 07/11/18 at 21:00 Active Scripts Active Reported Olanzapine Inj (Olanzapine) 10 Mg Vial 5 Mg IM PRN Q8HRS PRN Cetirizine Hcl 10 Mg Tablet 10 Mg PO DAILY EXELON 4.6mg/24hr (Rivastigmine) 1 Each Patch.td24 1 Patch TD DAILY Seroquel (Quetiapine Fumarate) 50 Mg Tablet 50 Mg PO BID Namenda (Memantine Hcl) 10 Mg Tablet 10 Mg PO BID Divalproex Sodium Er (Divalproex Sodium) 500 Mg Tab.er.24h 500 Mg PO BID Haldol (Haloperidol Lactate) 5 Mg/1 Ml Ampul 2.5 Mg IM PRN Q6HRS PRN Alprazolam 0.5 Mg Tablet 0.5 Mg PO TID Citalopram Hbr (Citalopram Hydrobromide) 20 Mg Tablet 20 Mg PO DAILY I have reviewed the current psychotropics carefully including drug interactions. Risk benefit ratio favors no change other than as noted in my dictated progress note. Diagnosis: Problems: (1) Anxiety disorder (2) Dementia in Alzheimer's disease with delusions (3) Dementia in Alzheimer's disease with depression (4) Dementia, vascular, with delusions (5) Dementia, vascular, with depression (6) Dementia of the Alzheimer's type with early onset with behavioral disturbance (7) Impulse control disorder SHAW CERRATO MD Jul 13, 2018 20:17
[2018-07-13] MEDS: MIRTAZAPINE 7.5 MG TABLET. PO SCH (21:18)
[2018-07-13] MEDS: TAMSULOSIN 0.4 MG CAP.ER.24H. PO SCH (21:19)
--- NOTE | 2018-07-14 00:12 | PN ---
DATE: 07/11/2018 This is a late entry, 07/11/2018, covers the elements not covered in my initial note. SUBJECTIVE: I met with the patient in the evening. The patient is no longer on one-on-one status. Cardenas was removed. Swallow study is being requested again. REVIEW OF SYSTEMS: Ambulation impaired. No CV, , pulmonary, eye, ENT system symptoms on review. Reliability poor. MENTAL STATUS EXAM: Oriented to himself. Insight, judgment, recent and remote memory, attention, concentration, fund of knowledge poor, consistent with his diagnosis as mentioned in my initial note. PLAN: No change from initial note. Once he is a little less labile, we will consider tapering the Xanax and thereafter using just one atypical antipsychotic instead of a combination of Seroquel and Zyprexa. Rest continue unchanged. MAN Nalini CERRATO MD DR: MARY/reed JOB#: [id number] / [id number]
--- NOTE | 2018-07-14 00:18 | PN ---
DATE: 07/12/2018 PSYCHIATRIC PROGRESS NOTE This is a late entry 07/12, covers elements not covered in my initial note. SUBJECTIVE: I met with the patient in the evening. The patient slept 7-1/2 hours previous evening, compliant with medications, restless, impulsive, ____ for urinary retention, defer to Dr. Nielson. REVIEW OF SYSTEMS: Ambulation impaired, difficulty with urination. No CV, GI, eye, ENT system symptoms on review. Reliability poor. MENTAL STATUS EXAM: Oriented to himself. Insight, judgment, recent and remote memory, attention, concentration, fund of knowledge poor, consistent with his diagnosis mentioned in my initial note. PLAN: Taper the Xanax down to 0.25 mg 3 times a day for 3 days, twice a day for 3 days, once a day for 3 days and stop and then we will consider reducing the Zyprexa. Continue Seroquel, Depakote, Celexa, Remeron for now along with Atarax p.r.n. SHAW CERRTAO MD DR: MARY/reed JOB#: [id number] / [id number]
[2018-07-14 06:47] VITALS: BP 123/70
[2018-07-14] MEDS: QUEtiapine 50 MG TABLET. PO SCH ×4 (09:07→20:49)
[2018-07-14] MEDS: DIVALPROEX 125 MG CAP.SPRINK PO SCH ×2 (09:08→20:49)
[2018-07-14] MEDS: CITALOPRAM 20 MG TABLET. PO SCH (09:08)
[2018-07-14] MEDS: CETIRIZINE HCL 10 MG TABLET PO SCH (09:09)
[2018-07-14] MEDS: CHOLECALCIFEROL (VITAMIN D3) 50,000 UNIT CAPSULE PO SCH (09:12)
[2018-07-14] MEDS: ALPRAZolam 0.25 MG TABLET PO SCH ×3 (09:12→20:49)
--- NOTE | 2018-07-14 16:04 | RAD ---
EXAM: AP abdomen DATE: 07/14/2018 12:50 PM INDICATION: CONSTIPATION COMPARISON: No Prior FINDINGS: No abnormal bowel dilatation to suggest bowel obstruction. Large volume colonic stool content is seen, most prominent in the descending colon to the rectum. Evaluation for free intraperitoneal gas is limited on this supine exam. No abnormal soft tissue mass effect. No suspicious calcifications are seen. IMPRESSION: 1. Large volume colonic stool content in the descending colon to the rectum. Electronically signed by: Lon Delaney MD (07/14/2018 4:01 PM) [facility]
[2018-07-14 16:25] VITALS: BP 132/77
[2018-07-14] MEDS: GLYCERIN ADULT 1 SUPP.RECT. PR PRN (16:30)
[2018-07-14] MEDS: TAMSULOSIN 0.4 MG CAP.ER.24H. PO SCH (20:49)
[2018-07-14] MEDS: MIRTAZAPINE 7.5 MG TABLET. PO SCH (20:49)
--- NOTE | 2018-07-14 22:39 | PDOC ---
Exam Note: Uriah Note: Please also refer to the separate dictated note~for this date of service dictated separately.~Patient seen individually. Discussed the patient with Nursing staff reviewed the chart.~Reviewed interim history and current functioning. Reviewed vital signs,~Labs/ Radiology~and current medications noted below. Continue current treatment with the changes noted in the dictated addendum note Assessment: Vital Signs: Vital Signs Date Time Temp Pulse Resp B/P (MAP) Pulse Ox O2 Delivery O2 Flow Rate FiO2 07/14/18 16:25 98.2 66 16 132/77 (95) 98 07/14/18 06:47 Room Air I&O Intake and Output 07/14/18 06:59 Intake Total 540 ml Output Total 400 ml Balance 140 ml Intake Oral 540 ml Output Urine Total 400 ml Current Medications: Meds: Current Medications Acetaminophen (Tylenol) 650 mg PRN Q6HRS PRN PO PAIN / TEMP; Start 07/06/18 at 01:00 Multi-Ingredient Ointment (Analgesic [place]) 1 lawrence PRN QID PRN TP MUSCLE PAIN; Start 07/06/18 at 01:00 Al Hydroxide/Mg Hydroxide (Mylanta Plus Xs) 15 ml PRN AFTMEALHC PRN PO DYSPEPSIA; Start 07/06/18 at 01:00 Magnesium Hydroxide (Milk Of Magnesia) 2,400 mg PRN QHS PRN PO CONSTIPATION; Start 07/06/18 at 01:00 Citalopram Hydrobromide (CeleXA) 20 mg DAILY PO Last administered on 07/14/18at 09:08; Start 07/06/18 at 09:00 Alprazolam (Xanax) 0.5 mg TID PO Last administered on 07/08/18at 14:00; Start 07/06/18 at 09:00; Stop 07/08/18 at 17:06; Status DC Divalproex Sodium (Depakote) 500 mg BID PO ; Start 07/06/18 at 09:00; Stop at 09:31; Status DC Memantine (Namenda) 10 mg BID PO Last administered on 07/08/18at 08:54; Start 07/06/18 at 09:00; Stop 07/08/18 at 17:06; Status DC Quetiapine Fumarate (SEROquel) 50 mg BID PO Last administered on 07/08/18 08:54 ; Start 07/06/18 at 09:00; Stop 07/08/18 at 17:06; Status DC Rivastigmine (Exelon) 1 patch DAILY TD Last administered on 07/08/18 08:54; Start 07/06/18 at 09:00; Stop 07/08/18 at 17:06; Status DC Cetirizine HCl (ZyrTEC) 10 mg DAILY PO Last administered on 07/14/18 09:09; Start 07/06/18 at 09:00 Divalproex Sodium (Depakote Sprinkles) 500 mg BID PO Last administered on 20:49; Start 07/06/18 at 09:45 Olanzapine (ZyPREXA ZYDIS) 2.5 mg PRN Q2HR PRN PO PSYCHOSIS Last administered on 07/14/18 13:32; Start 07/06/18 at 14:15 Tamsulosin HCl (Flomax) 0.4 mg QHS PO Last administered on 07/10/18 19:30; Start 07/07/18 at 21:00; Stop 07/11/18 at 18:51; Status DC Vitamin D (Vitamin D3) 50,000 unit WEEKLY PO Last administered on 07/14/18 09: 12; Start 07/07/18 at 14:15 Hydroxyzine HCl (Atarax) 25 mg PRN Q2HR PRN PO ANXIETY / AGITATION Last administered on 07/11/18 22:24; Start 07/07/18 at 16:45 Alprazolam (Xanax) 0.25 mg QID PO Last administered on 07/13/18 21:19; Start 07/08/18 at 21:00; Stop 07/14/18 at 01:16; Status DC Quetiapine Fumarate (SEROquel) 25 mg QID PO Last administered on 07/14/18 20: 49; Start 07/08/18 at 21:00 Mirtazapine (Remeron) 7.5 mg QHS PO Last administered on 07/14/18 20:49; Start 07/09/18 at 21:00 Tamsulosin HCl (Flomax) 0.8 mg QHS PO Last administered on 07/14/18 20:49; Start 07/11/18 at 21:00 Alprazolam (Xanax) 0.25 mg TID PO Last administered on 07/14/18at 20:49; Start 07/14/18 at 09:00; Stop 07/16/18 at 23:00 Alprazolam (Xanax) 0.25 mg BID PO ; Start 07/17/18 at 09:00; Stop 07/19/18 at 23 :00 Alprazolam (Xanax) 0.25 mg DAILY PO ; Start 07/20/18 at 09:00; Stop 07/22/18 at 23:00 Glycerin (Sani-Supp Adult) 1 supp PRN DAILY PRN MS CONSTIPATION Last administered on 07/14/18at 16:30; Start 07/14/18 at 16:15 Active Scripts Active Reported Olanzapine Inj (Olanzapine) 10 Mg Vial 5 Mg IM PRN Q8HRS PRN Cetirizine Hcl 10 Mg Tablet 10 Mg PO DAILY EXELON 4.6mg/24hr (Rivastigmine) 1 Each Patch.td24 1 Patch TD DAILY Seroquel (Quetiapine Fumarate) 50 Mg Tablet 50 Mg PO BID Namenda (Memantine Hcl) 10 Mg Tablet 10 Mg PO BID Divalproex Sodium Er (Divalproex Sodium) 500 Mg Tab.er.24h 500 Mg PO BID Haldol (Haloperidol Lactate) 5 Mg/1 Ml Ampul 2.5 Mg IM PRN Q6HRS PRN Alprazolam 0.5 Mg Tablet 0.5 Mg PO TID Citalopram Hbr (Citalopram Hydrobromide) 20 Mg Tablet 20 Mg PO DAILY I have reviewed the current psychotropics carefully including drug interactions. Risk benefit ratio favors no change other than as noted in my dictated progress note. Diagnosis: Problems: (1) Anxiety disorder (2) Dementia in Alzheimer's disease with delusions (3) Dementia in Alzheimer's disease with depression (4) Dementia, vascular, with delusions (5) Dementia, vascular, with depression (6) Dementia of the Alzheimer's type with early onset with behavioral disturbance (7) Impulse control disorder SHAW CERRATO MD Jul 14, 2018 22:39
[2018-07-15 08:50] VITALS: BP 119/72
[2018-07-15] MEDS: CITALOPRAM 20 MG TABLET. PO SCH (09:22)
[2018-07-15] MEDS: QUEtiapine 50 MG TABLET. PO SCH ×2 (09:22→12:45)
[2018-07-15] MEDS: CETIRIZINE HCL 10 MG TABLET PO SCH (09:22)
[2018-07-15] MEDS: DIVALPROEX 125 MG CAP.SPRINK PO SCH ×2 (09:22→20:01)
[2018-07-15] MEDS: ALPRAZolam 0.25 MG TABLET PO SCH ×3 (09:24→20:01)
--- NOTE | 2018-07-15 13:06 | PN ---
DATE: 07/13/2018 PSYCHIATRIC PROGRESS NOTE This is a late entry, 07/13, covers elements not covered in my initial note. SUBJECTIVE: I met with the patient in the evening. The patient slept 4-1/4 hours previous evening. He has been anxious, restless, throwing things around him, agitated in the morning, received Zyprexa x 1. REVIEW OF SYSTEMS: No CV, , pulmonary, eye, ENT system symptoms on review. Gait unsteady. MENTAL STATUS EXAM: Oriented to himself. Insight, judgment, recent and remote memory, attention, concentration, fund of knowledge poor, consistent with his diagnosis mentioned in my initial note. IMPRESSION: Major neurocognitive disorder, Alzheimer, vascular with delusion, depression, behavioral disturbance. Rest unchanged. PLAN: Valproic acid level 72, therapeutic on the . Appetite is better. Staff had to feed him. Received Zyprexa in the morning. The Xanax could be causing paradoxical disinhibition. We will reduce from 0.25 mg 4 times a day to 3 times a day for 3 days, twice a day for 3 days, once a day for 3 days, then stop it. Continue Celexa. Rest of the psychotropics per initial note. MAN Nalini CERRATO MD DR: MARY/reed JOB#: [id number] / [id number]
[2018-07-15] MEDS: QUEtiapine 25 MG TABLET. PO SCH ×3 (13:09→20:01)
[2018-07-15 16:20] VITALS: BP 99/60
[2018-07-15] MEDS: MIRTAZAPINE 7.5 MG TABLET. PO SCH (20:00)
[2018-07-15] MEDS: TAMSULOSIN 0.4 MG CAP.ER.24H. PO SCH (20:00)
[2018-07-15] MEDS: hydrOXYzine HCL 25 MG TABLET PO PRN (21:41)
--- NOTE | 2018-07-16 00:37 | PN ---
DATE: 07/14/2018 PSYCHIATRIC PROGRESS NOTE This is a late entry, 07/14, covers elements not covered in my initial note. SUBJECTIVE: I met with the patient in the evening. The patient slept 5-1/2 hours previous evening. He was quite aggressive with nursing staff. At one point when they were assisting him with ADLs, he grabbed the nursing staffs for almost causing some bruising. Per the nursing report, he has been possibly hallucinating. He ate breakfast, lunch, received Zyprexa Zydis for anxiety, agitation. REVIEW OF SYSTEMS: Ambulation impaired. No CV, , pulmonary, eye, ENT system symptoms on review. Reliability poor. MENTAL STATUS EXAM: Oriented to himself. Insight, judgment, recent and remote memory, attention, concentration, fund of knowledge poor, consistent with his diagnosis mentioned in my initial note. PLAN: Taper and stop the Xanax. Continue rest unchanged. Adjust Depakote and Seroquel as needed. He is on Zyprexa scheduled and we will try and reduce this gradually since he is on Seroquel as well, try and avoid 2 atypical antipsychotics. MAN Nalini CERRATO MD DR: MARY/reed JOB#: [id number] / [id number]
[2018-07-16 05:55] VITALS: BP 125/67
[2018-07-16] MEDS: CETIRIZINE HCL 10 MG TABLET PO SCH (08:45)
[2018-07-16] MEDS: QUEtiapine 25 MG TABLET. PO SCH ×4 (08:45→20:59)
[2018-07-16] MEDS: DIVALPROEX 125 MG CAP.SPRINK PO SCH ×2 (08:46→20:59)
[2018-07-16] MEDS: ALPRAZolam 0.25 MG TABLET PO SCH ×3 (08:47→21:01)
[2018-07-16] MEDS: SERTRALINE 50 MG TABLET. PO SCH (08:47)
[2018-07-16 16:22] VITALS: BP 126/73
[2018-07-16] MEDS: TAMSULOSIN 0.4 MG CAP.ER.24H. PO SCH (20:59)
[2018-07-16] MEDS: MIRTAZAPINE 7.5 MG TABLET. PO SCH (21:00)
[2018-07-16] MEDS: GLYCERIN ADULT 1 SUPP.RECT. PR PRN (21:59)
--- NOTE | 2018-07-17 00:41 | PN ---
DATE: 07/15/2018 PSYCHIATRIC PROGRESS NOTE This is a late entry, 07/15, covers elements not covered in my initial note. SUBJECTIVE: I met with the patient in the evening. The patient slept 7 hours previous evening, remains confused, withdrawn, resistive with medications, did participate with PT, OT. visited. REVIEW OF SYSTEMS: No CV, , pulmonary, eye, ENT system symptoms on review. Gait unsteady, in Broda chair. MENTAL STATUS EXAM: Oriented to himself. Insight, judgment, recent and remote memory, attention, concentration, fund of knowledge poor, consistent with his diagnosis mentioned in my initial note. PLAN: Change Celexa 20 mg a day to Zoloft 50 mg a day, taper and stop the Xanax. Continue rest unchanged and perhaps taper and stop the Zyprexa as he remains on Seroquel. I would like to avoid using 2 atypical antipsychotics. SHAW CERRATO MD DR: MARY/reed JOB#: [id number] / [id number]
--- NOTE | 2018-07-17 02:56 | PDOC ---
Exam Note: Uriah Note: Please also refer to the separate dictated note~for this date of service dictated separately.~Patient seen individually. Discussed the patient with Nursing staff reviewed the chart.~Reviewed interim history and current functioning. Reviewed vital signs,~Labs/ Radiology~and current medications noted below. Continue current treatment with the changes noted in the dictated addendum note Assessment: Vital Signs: Vital Signs Date Time Temp Pulse Resp B/P (MAP) Pulse Ox O2 Delivery O2 Flow Rate FiO2 07/16/18 16:22 97.8 71 20 126/73 (90) 95 07/15/18 16:20 Room Air I&O Intake and Output 07/17/18 07:00 Intake Total 618 ml Balance 618 ml Intake Oral 618 ml # Voids 1 Current Medications: Meds: Current Medications Acetaminophen (Tylenol) 650 mg PRN Q6HRS PRN PO PAIN / TEMP; Start 07/06/18 at 01:00 Multi-Ingredient Ointment (Analgesic [place]) 1 lawrence PRN QID PRN TP MUSCLE PAIN; Start 07/06/18 at 01:00 Al Hydroxide/Mg Hydroxide (Mylanta Plus Xs) 15 ml PRN AFTMEALHC PRN PO DYSPEPSIA; Start 07/06/18 at 01:00 Magnesium Hydroxide (Milk Of Magnesia) 2,400 mg PRN QHS PRN PO CONSTIPATION; Start 07/06/18 at 01:00 Citalopram Hydrobromide (CeleXA) 20 mg DAILY PO Last administered on 07/15/18at 09:22; Start 07/06/18 at 09:00; Stop 07/15/18 at 18:48; Status DC Alprazolam (Xanax) 0.5 mg TID PO Last administered on 07/08/18at 14:00; Start 07/06/18 at 09:00; Stop 07/08/18 at 17:06; Status DC Divalproex Sodium (Depakote) 500 mg BID PO ; Start 07/06/18 at 09:00; Stop at 09:31; Status DC Memantine (Namenda) 10 mg BID PO Last administered on 07/08/18at 08:54; Start 07/06/18 at 09:00; Stop 07/08/18 at 17:06; Status DC Quetiapine Fumarate (SEROquel) 50 mg BID PO Last administered on 07/08/18 08:54 ; Start 07/06/18 at 09:00; Stop 07/08/18 at 17:06; Status DC Rivastigmine (Exelon) 1 patch DAILY TD Last administered on 07/08/18 08:54; Start 07/06/18 at 09:00; Stop 07/08/18 at 17:06; Status DC Cetirizine HCl (ZyrTEC) 10 mg DAILY PO Last administered on 07/16/18 08:45; Start 07/06/18 at 09:00 Divalproex Sodium (Depakote Sprinkles) 500 mg BID PO Last administered on 20:59; Start 07/06/18 at 09:45 Olanzapine (ZyPREXA ZYDIS) 2.5 mg PRN Q2HR PRN PO PSYCHOSIS Last administered on 07/15/18 21:41; Start 07/06/18 at 14:15 Tamsulosin HCl (Flomax) 0.4 mg QHS PO Last administered on 07/10/18 19:30; Start 07/07/18 at 21:00; Stop 07/11/18 at 18:51; Status DC Vitamin D (Vitamin D3) 50,000 unit WEEKLY PO Last administered on 07/14/18 09: 12; Start 07/07/18 at 14:15 Hydroxyzine HCl (Atarax) 25 mg PRN Q2HR PRN PO ANXIETY / AGITATION Last administered on 07/15/18 21:41; Start 07/07/18 at 16:45 Alprazolam (Xanax) 0.25 mg QID PO Last administered on 07/13/18 21:19; Start 07/08/18 at 21:00; Stop 07/14/18 at 01:16; Status DC Quetiapine Fumarate (SEROquel) 25 mg QID PO Last administered on 07/15/18 09: 22; Start 07/08/18 at 21:00; Stop 07/15/18 at 12:47; Status DC Mirtazapine (Remeron) 7.5 mg QHS PO Last administered on 07/16/18 21:00; Start 07/09/18 at 21:00 Tamsulosin HCl (Flomax) 0.8 mg QHS PO Last administered on 07/16/18at 20:59; Start 07/11/18 at 21:00 Alprazolam (Xanax) 0.25 mg TID PO Last administered on 07/16/18at 21:01; Start 07/14/18 at 09:00; Stop 07/16/18 at 23:00; Status DC Alprazolam (Xanax) 0.25 mg BID PO ; Start 07/17/18 at 09:00; Stop 07/19/18 at 23 :00 Alprazolam (Xanax) 0.25 mg DAILY PO ; Start 07/20/18 at 09:00; Stop 07/22/18 at 23:00 Glycerin (Sani-Supp Adult) 1 supp PRN DAILY PRN CO CONSTIPATION Last administered on 07/16/18at 21:59; Start 07/14/18 at 16:15 Quetiapine Fumarate (SEROquel) 25 mg QID PO Last administered on 07/16/18at 20: 59; Start 07/15/18 at 13:00 Sertraline HCl (Zoloft) 50 mg DAILY PO Last administered on 07/16/18at 08:47; Start 07/16/18 at 09:00 Active Scripts Active Reported Olanzapine Inj (Olanzapine) 10 Mg Vial 5 Mg IM PRN Q8HRS PRN Cetirizine Hcl 10 Mg Tablet 10 Mg PO DAILY EXELON 4.6mg/24hr (Rivastigmine) 1 Each Patch.td24 1 Patch TD DAILY Seroquel (Quetiapine Fumarate) 50 Mg Tablet 50 Mg PO BID Namenda (Memantine Hcl) 10 Mg Tablet 10 Mg PO BID Divalproex Sodium Er (Divalproex Sodium) 500 Mg Tab.er.24h 500 Mg PO BID Haldol (Haloperidol Lactate) 5 Mg/1 Ml Ampul 2.5 Mg IM PRN Q6HRS PRN Alprazolam 0.5 Mg Tablet 0.5 Mg PO TID Citalopram Hbr (Citalopram Hydrobromide) 20 Mg Tablet 20 Mg PO DAILY I have reviewed the current psychotropics carefully including drug interactions. Risk benefit ratio favors no change other than as noted in my dictated progress note. Diagnosis: Problems: (1) Anxiety disorder (2) Dementia in Alzheimer's disease with delusions (3) Dementia in Alzheimer's disease with depression (4) Dementia, vascular, with delusions (5) Dementia, vascular, with depression (6) Dementia of the Alzheimer's type with early onset with behavioral disturbance (7) Impulse control disorder SHAW CERRATO MD Jul 17, 2018 02:56
[2018-07-17 06:12] VITALS: BP 113/73
[2018-07-17] MEDS: SERTRALINE 50 MG TABLET. PO SCH (09:06)
[2018-07-17] MEDS: DIVALPROEX 125 MG CAP.SPRINK PO SCH ×2 (09:06→20:32)
[2018-07-17] MEDS: ALPRAZolam 0.25 MG TABLET PO SCH ×2 (09:06→20:32)
[2018-07-17] MEDS: CETIRIZINE HCL 10 MG TABLET PO SCH (09:06)
[2018-07-17] MEDS: QUEtiapine 25 MG TABLET. PO SCH ×4 (09:06→20:32)
[2018-07-17 09:15] LABS: BASO % 0 % (0-3); EOS % 0 % (0-3); HEMATOCRIT 41.8 % (39.0-53.0); HEMOGLOBIN 14.1 g/dL (13.0-17.5); LYMPH # 0.6 x10^3/uL (1.0-4.8); LYMPH % 5 % (24-48); MEAN CORPUSCULAR HEMOGLOBIN 31 pg (25-35); MEAN CORPUSCULAR HGB CONC 34 g/dL (31-37); MEAN CORPUSCULAR VOLUME 91 fL (79-100); MONO # 1.1 x10^3/uL (0.0-1.1); MONO % 10 % (0-9); NEUT # 9.4 x10^3uL (1.8-7.7); NEUT % 84 % (31-73); PLATELET COUNT 94 x10^3/uL (140-400); RED BLOOD COUNT 4.62 x10^6/uL (4.30-5.70); RED CELL DISTRIBUTION WIDTH 14.1 % (11.5-14.5); WHITE BLOOD COUNT 11.1 x10^3/uL (4.0-11.0)
[2018-07-17 09:31] LABS: ALBUMIN 3.2 g/dL (3.4-5.0); ALBUMIN/GLOBULIN RATIO 0.8 (1.0-1.7); CALCIUM 9.1 mg/dL (8.5-10.1); CREATININE 0.9 mg/dL (0.7-1.3); GFR 83.2; POTASSIUM 3.5 mmol/L (3.5-5.1); TOTAL PROTEIN 7.3 g/dL (6.4-8.2)
[2018-07-17 16:11] VITALS: BP 124/74
--- NOTE | 2018-07-17 20:23 | PDOC ---
Exam Note: Uriah Note: Please also refer to the separate dictated note~for this date of service dictated separately.~Patient seen individually. Discussed the patient with Nursing staff reviewed the chart.~Reviewed interim history and current functioning. Reviewed vital signs,~Labs/ Radiology~and current medications noted below. Continue current treatment with the changes noted in the dictated addendum note Assessment: Vital Signs: Vital Signs Date Time Temp Pulse Resp B/P (MAP) Pulse Ox O2 Delivery O2 Flow Rate FiO2 07/17/18 16:11 98.6 94 22 124/74 (91) 94 Room Air I&O Intake and Output 07/17/18 06:59 Intake Total 618 ml Output Total 500 ml Balance 118 ml Intake Oral 618 ml Output Urine Total 500 ml # Voids 1 Labs: Laboratory Tests Test 07/17/18 09:03 White Blood Count 11.1 x10^3/uL (4.0-11.0) #H Red Blood Count 4.62 x10^6/uL (4.30-5.70) Hemoglobin 14.1 g/dL (13.0-17.5) Hematocrit 41.8 % (39.0-53.0) Mean Corpuscular Volume 91 fL (79-100) Mean Corpuscular Hemoglobin 31 pg (25-35) Mean Corpuscular Hemoglobin Concent 34 g/dL (31-37) Red Cell Distribution Width 14.1 % (11.5-14.5) Platelet Count 94 x10^3/uL (140-400) L Neutrophils (%) (Auto) 84 % (31-73) H Lymphocytes (%) (Auto) 5 % (24-48) L Monocytes (%) (Auto) 10 % (0-9) H Eosinophils (%) (Auto) 0 % (0-3) Basophils (%) (Auto) 0 % (0-3) Neutrophils # (Auto) 9.4 x10^3uL (1.8-7.7) H Lymphocytes # (Auto) 0.6 x10^3/uL (1.0-4.8) L Monocytes # (Auto) 1.1 x10^3/uL (0.0-1.1) Eosinophils # (Auto) 0.0 x10^3/uL (0.0-0.7) Basophils # (Auto) 0.0 x10^3/uL (0.0-0.2) Sodium Level 148 mmol/L (136-145) H Potassium Level 3.5 mmol/L (3.5-5.1) Chloride Level 109 mmol/L (98-107) H Carbon Dioxide Level 30 mmol/L (21-32) Anion Gap 9 (6-14) Blood Urea Nitrogen 19 mg/dL (8-26) Creatinine 0.9 mg/dL (0.7-1.3) Estimated GFR (Cockcroft-Gault) 83.2 BUN/Creatinine Ratio 21 (6-20) H Glucose Level 138 mg/dL (70-99) H Calcium Level 9.1 mg/dL (8.5-10.1) Total Bilirubin 1.0 mg/dL (0.2-1.0) Aspartate Amino Transferase (AST) 19 U/L (15-37) Alanine Aminotransferase (ALT) 40 U/L (16-63) Alkaline Phosphatase 66 U/L (46-116) Total Protein 7.3 g/dL (6.4-8.2) Albumin 3.2 g/dL (3.4-5.0) L Albumin/Globulin Ratio 0.8 (1.0-1.7) L Current Medications: Meds: Current Medications Acetaminophen (Tylenol) 650 mg PRN Q6HRS PRN PO PAIN / TEMP; Start 07/06/18 at 01:00 Multi-Ingredient Ointment (Analgesic Cle[place]) 1 lawrence PRN QID PRN TP MUSCLE PAIN; Start 07/06/18 at 01:00 Al Hydroxide/Mg Hydroxide (Mylanta Plus Xs) 15 ml PRN AFTMEALHC PRN PO DYSPEPSIA; Start 07/06/18 at 01:00 Magnesium Hydroxide (Milk Of Magnesia) 2,400 mg PRN QHS PRN PO CONSTIPATION; Start 07/06/18 at 01:00 Citalopram Hydrobromide (CeleXA) 20 mg DAILY PO Last administered on 07/15/18at 09:22; Start 07/06/18 at 09:00; Stop 07/15/18 at 18:48; Status DC Alprazolam (Xanax) 0.5 mg TID PO Last administered on 07/08/18at 14:00; Start 07/06/18 at 09:00; Stop 07/08/18 at 17:06; Status DC Divalproex Sodium (Depakote) 500 mg BID PO ; Start 07/06/18 at 09:00; Stop at 09:31; Status DC Memantine (Namenda) 10 mg BID PO Last administered on 07/08/18 08:54; Start 07/06/18 at 09:00; Stop 07/08/18 at 17:06; Status DC Quetiapine Fumarate (SEROquel) 50 mg BID PO Last administered on 07/08/18 08:54 ; Start 07/06/18 at 09:00; Stop 07/08/18 at 17:06; Status DC Rivastigmine (Exelon) 1 patch DAILY TD Last administered on 07/08/18 08:54; Start 07/06/18 at 09:00; Stop 07/08/18 at 17:06; Status DC Cetirizine HCl (ZyrTEC) 10 mg DAILY PO Last administered on 07/17/18at 09:06; Start 07/06/18 at 09:00 Divalproex Sodium (Depakote Sprinkles) 500 mg BID PO Last administered on 09:06; Start 07/06/18 at 09:45 Olanzapine (ZyPREXA ZYDIS) 2.5 mg PRN Q2HR PRN PO PSYCHOSIS Last administered on 07/15/18at 21:41; Start 07/06/18 at 14:15 Tamsulosin HCl (Flomax) 0.4 mg QHS PO Last administered on 07/10/18at 19:30; Start 07/07/18 at 21:00; Stop 07/11/18 at 18:51; Status DC Vitamin D (Vitamin D3) 50,000 unit WEEKLY PO Last administered on 07/14/18 09: 12; Start 07/07/18 at 14:15 Hydroxyzine HCl (Atarax) 25 mg PRN Q2HR PRN PO ANXIETY / AGITATION Last administered on 07/15/18at 21:41; Start 07/07/18 at 16:45 Alprazolam (Xanax) 0.25 mg QID PO Last administered on 07/13/18at 21:19; Start 07/08/18 at 21:00; Stop 07/14/18 at 01:16; Status DC Quetiapine Fumarate (SEROquel) 25 mg QID PO Last administered on 07/15/18at 09: 22; Start 07/08/18 at 21:00; Stop 07/15/18 at 12:47; Status DC Mirtazapine (Remeron) 7.5 mg QHS PO Last administered on 07/16/18at 21:00; Start 07/09/18 at 21:00 Tamsulosin HCl (Flomax) 0.8 mg QHS PO Last administered on 07/16/18at 20:59; Start 07/11/18 at 21:00 Alprazolam (Xanax) 0.25 mg TID PO Last administered on 07/16/18at 21:01; Start 07/14/18 at 09:00; Stop 07/16/18 at 23:00; Status DC Alprazolam (Xanax) 0.25 mg BID PO Last administered on 07/17/18at 09:06; Start 07/17/18 at 09:00; Stop 07/19/18 at 23:00 Alprazolam (Xanax) 0.25 mg DAILY PO ; Start 07/20/18 at 09:00; Stop 07/22/18 at 23:00 Glycerin (Sani-Supp Adult) 1 supp PRN DAILY PRN [place] CONSTIPATION Last administered on 07/16/18at 21:59; Start 07/14/18 at 16:15 Quetiapine Fumarate (SEROquel) 25 mg QID PO Last administered on 07/17/18at 16: 57; Start 07/15/18 at 13:00 Sertraline HCl (Zoloft) 50 mg DAILY PO Last administered on 07/17/18at 09:06; Start 07/16/18 at 09:00 Active Scripts Active Reported Olanzapine Inj (Olanzapine) 10 Mg Vial 5 Mg IM PRN Q8HRS PRN Cetirizine Hcl 10 Mg Tablet 10 Mg PO DAILY EXELON 4.6mg/24hr (Rivastigmine) 1 Each Patch.td24 1 Patch TD DAILY Seroquel (Quetiapine Fumarate) 50 Mg Tablet 50 Mg PO BID Namenda (Memantine Hcl) 10 Mg Tablet 10 Mg PO BID Divalproex Sodium Er (Divalproex Sodium) 500 Mg Tab.er.24h 500 Mg PO BID Haldol (Haloperidol Lactate) 5 Mg/1 Ml Ampul 2.5 Mg IM PRN Q6HRS PRN Alprazolam 0.5 Mg Tablet 0.5 Mg PO TID Citalopram Hbr (Citalopram Hydrobromide) 20 Mg Tablet 20 Mg PO DAILY I have reviewed the current psychotropics carefully including drug interactions. Risk benefit ratio favors no change other than as noted in my dictated progress note. Diagnosis: Problems: (1) Anxiety disorder (2) Dementia in Alzheimer's disease with delusions (3) Dementia in Alzheimer's disease with depression (4) Dementia, vascular, with delusions (5) Dementia, vascular, with depression (6) Dementia of the Alzheimer's type with early onset with behavioral disturbance (7) Impulse control disorder SHAW CERRATO MD Jul 17, 2018 20:23
[2018-07-17] MEDS: MIRTAZAPINE 7.5 MG TABLET. PO SCH (20:32)
[2018-07-17] MEDS: TAMSULOSIN 0.4 MG CAP.ER.24H. PO SCH (20:32)
--- NOTE | 2018-07-17 20:59 | PDOC ---
Exam Note: Uriah Note: Late entry for DOS July 15, 2018. Please also refer to the separate dictated note~for this date of service dictated separately.~Patient seen individually. Discussed the patient with Nursing staff reviewed the chart.~Reviewed interim history and current functioning. Reviewed vital signs,~Labs/ Radiology~and current medications noted below. Continue current treatment with the changes noted in the dictated addendum note Assessment: Vital Signs: VS - Last 72 Hours, by Label Date Time Temp Pulse Resp B/P (MAP) Pulse Ox O2 Delivery O2 Flow Rate FiO2 07/17/18 16:11 98.6 94 22 124/74 (91) 94 Room Air 07/17/18 06:12 97.8 78 20 113/73 (86) 98 07/16/18 16:22 97.8 71 20 126/73 (90) 95 07/16/18 05:55 97.4 58 18 125/67 (86) 99 07/15/18 16:20 97.9 73 20 99/60 (73) 98 Room Air 07/15/18 08:50 97.6 64 18 119/72 (88) 100 Room Air Vital Signs Date Time Temp Pulse Resp B/P (MAP) Pulse Ox O2 Delivery O2 Flow Rate FiO2 07/17/18 16:11 98.6 94 22 124/74 (91) 94 Room Air I&O Intake and Output 07/17/18 06:59 Intake Total 618 ml Output Total 500 ml Balance 118 ml Intake Oral 618 ml Output Urine Total 500 ml # Voids 1 Labs: Laboratory Tests Test 07/17/18 09:03 White Blood Count 11.1 x10^3/uL (4.0-11.0) #H Red Blood Count 4.62 x10^6/uL (4.30-5.70) Hemoglobin 14.1 g/dL (13.0-17.5) Hematocrit 41.8 % (39.0-53.0) Mean Corpuscular Volume 91 fL (79-100) Mean Corpuscular Hemoglobin 31 pg (25-35) Mean Corpuscular Hemoglobin Concent 34 g/dL (31-37) Red Cell Distribution Width 14.1 % (11.5-14.5) Platelet Count 94 x10^3/uL (140-400) L Neutrophils (%) (Auto) 84 % (31-73) H Lymphocytes (%) (Auto) 5 % (24-48) L Monocytes (%) (Auto) 10 % (0-9) H Eosinophils (%) (Auto) 0 % (0-3) Basophils (%) (Auto) 0 % (0-3) Neutrophils # (Auto) 9.4 x10^3uL (1.8-7.7) H Lymphocytes # (Auto) 0.6 x10^3/uL (1.0-4.8) L Monocytes # (Auto) 1.1 x10^3/uL (0.0-1.1) Eosinophils # (Auto) 0.0 x10^3/uL (0.0-0.7) Basophils # (Auto) 0.0 x10^3/uL (0.0-0.2) Sodium Level 148 mmol/L (136-145) H Potassium Level 3.5 mmol/L (3.5-5.1) Chloride Level 109 mmol/L (98-107) H Carbon Dioxide Level 30 mmol/L (21-32) Anion Gap 9 (6-14) Blood Urea Nitrogen 19 mg/dL (8-26) Creatinine 0.9 mg/dL (0.7-1.3) Estimated GFR (Cockcroft-Gault) 83.2 BUN/Creatinine Ratio 21 (6-20) H Glucose Level 138 mg/dL (70-99) H Calcium Level 9.1 mg/dL (8.5-10.1) Total Bilirubin 1.0 mg/dL (0.2-1.0) Aspartate Amino Transferase (AST) 19 U/L (15-37) Alanine Aminotransferase (ALT) 40 U/L (16-63) Alkaline Phosphatase 66 U/L (46-116) Total Protein 7.3 g/dL (6.4-8.2) Albumin 3.2 g/dL (3.4-5.0) L Albumin/Globulin Ratio 0.8 (1.0-1.7) L Current Medications: Meds: Current Medications Acetaminophen (Tylenol) 650 mg PRN Q6HRS PRN PO PAIN / TEMP; Start 07/06/18 at 01:00 Multi-Ingredient Ointment (Analgesic Woody) 1 lawrence PRN QID PRN TP MUSCLE PAIN; Start 07/06/18 at 01:00 Al Hydroxide/Mg Hydroxide (Mylanta Plus Xs) 15 ml PRN AFTMEALHC PRN PO DYSPEPSIA; Start 07/06/18 at 01:00 Magnesium Hydroxide (Milk Of Magnesia) 2,400 mg PRN QHS PRN PO CONSTIPATION; Start 07/06/18 at 01:00 Citalopram Hydrobromide (CeleXA) 20 mg DAILY PO Last administered on 07/15/18at 09:22; Start 07/06/18 at 09:00; Stop 07/15/18 at 18:48; Status DC Alprazolam (Xanax) 0.5 mg TID PO Last administered on 07/08/18at 14:00; Start 07/06/18 at 09:00; Stop 07/08/18 at 17:06; Status DC Divalproex Sodium (Depakote) 500 mg BID PO ; Start 07/06/18 at 09:00; Stop at 09:31; Status DC Memantine (Namenda) 10 mg BID PO Last administered on 07/08/18at 08:54; Start 07/06/18 at 09:00; Stop 07/08/18 at 17:06; Status DC Quetiapine Fumarate (SEROquel) 50 mg BID PO Last administered on 07/08/18at 08:54 ; Start 07/06/18 at 09:00; Stop 07/08/18 at 17:06; Status DC Rivastigmine (Exelon) 1 patch DAILY TD Last administered on 07/08/18at 08:54; Start 07/06/18 at 09:00; Stop 07/08/18 at 17:06; Status DC Cetirizine HCl (ZyrTEC) 10 mg DAILY PO Last administered on 07/17/18at 09:06; Start 07/06/18 at 09:00 Divalproex Sodium (Depakote Sprinkles) 500 mg BID PO Last administered on at 20:32; Start 07/06/18 at 09:45 Olanzapine (ZyPREXA ZYDIS) 2.5 mg PRN Q2HR PRN PO PSYCHOSIS Last administered on 07/15/18at 21:41; Start 07/06/18 at 14:15 Tamsulosin HCl (Flomax) 0.4 mg QHS PO Last administered on 07/10/18 19:30; Start 07/07/18 at 21:00; Stop 07/11/18 at 18:51; Status DC Vitamin D (Vitamin D3) 50,000 unit WEEKLY PO Last administered on 07/14/18 09: 12; Start 07/07/18 at 14:15 Hydroxyzine HCl (Atarax) 25 mg PRN Q2HR PRN PO ANXIETY / AGITATION Last administered on 07/15/18at 21:41; Start 07/07/18 at 16:45 Alprazolam (Xanax) 0.25 mg QID PO Last administered on 07/13/18 21:19; Start 07/08/18 at 21:00; Stop 07/14/18 at 01:16; Status DC Quetiapine Fumarate (SEROquel) 25 mg QID PO Last administered on 07/15/18 09: 22; Start 07/08/18 at 21:00; Stop 07/15/18 at 12:47; Status DC Mirtazapine (Remeron) 7.5 mg QHS PO Last administered on 07/17/18 20:32; Start 07/09/18 at 21:00 Tamsulosin HCl (Flomax) 0.8 mg QHS PO Last administered on 07/17/18 20:32; Start 07/11/18 at 21:00 Alprazolam (Xanax) 0.25 mg TID PO Last administered on 07/16/18at 21:01; Start 07/14/18 at 09:00; Stop 07/16/18 at 23:00; Status DC Alprazolam (Xanax) 0.25 mg BID PO Last administered on 07/17/18at 20:32; Start 07/17/18 at 09:00; Stop 07/19/18 at 23:00 Alprazolam (Xanax) 0.25 mg DAILY PO ; Start 07/20/18 at 09:00; Stop 07/22/18 at 23:00 Glycerin (Sani-Supp Adult) 1 supp PRN DAILY PRN [place] CONSTIPATION Last administered on 07/16/18at 21:59; Start 07/14/18 at 16:15 Quetiapine Fumarate (SEROquel) 25 mg QID PO Last administered on 07/17/18at 20: 32; Start 07/15/18 at 13:00 Sertraline HCl (Zoloft) 50 mg DAILY PO Last administered on 07/17/18at 09:06; Start 07/16/18 at 09:00 Active Scripts Active Reported Olanzapine Inj (Olanzapine) 10 Mg Vial 5 Mg IM PRN Q8HRS PRN Cetirizine Hcl 10 Mg Tablet 10 Mg PO DAILY EXELON 4.6mg/24hr (Rivastigmine) 1 Each Patch.td24 1 Patch TD DAILY Seroquel (Quetiapine Fumarate) 50 Mg Tablet 50 Mg PO BID Namenda (Memantine Hcl) 10 Mg Tablet 10 Mg PO BID Divalproex Sodium Er (Divalproex Sodium) 500 Mg Tab.er.24h 500 Mg PO BID Haldol (Haloperidol Lactate) 5 Mg/1 Ml Ampul 2.5 Mg IM PRN Q6HRS PRN Alprazolam 0.5 Mg Tablet 0.5 Mg PO TID Citalopram Hbr (Citalopram Hydrobromide) 20 Mg Tablet 20 Mg PO DAILY I have reviewed the current psychotropics carefully including drug interactions. Risk benefit ratio favors no change other than as noted in my dictated progress note. Diagnosis: Problems: (1) Anxiety disorder (2) Dementia in Alzheimer's disease with delusions (3) Dementia in Alzheimer's disease with depression (4) Dementia, vascular, with delusions (5) Dementia, vascular, with depression (6) Dementia of the Alzheimer's type with early onset with behavioral disturbance (7) Impulse control disorder SHAW CERRATO MD Jul 17, 2018 20:59
--- NOTE | 2018-07-18 00:22 | PN ---
DATE: 07/16/2018 PSYCHIATRIC PROGRESS NOTE This is a late entry of 07/16/2018, covers elements not covered in my initial note. SUBJECTIVE: I met with the patient in the evening. The patient slept 4-1/2 hours previous evening. The patient is compliant with his medication, remains confused, ambulates with physical therapy staff, somewhat. Xanax is being tapered and hopefully, this should help improve ambulation further. REVIEW OF SYSTEMS: No CV, , pulmonary, eye, ENT system symptoms on review. Reliability is poor. MENTAL STATUS EXAM: Oriented to himself. Insight, judgment, recent and remote memory, attention, concentration, fund of knowledge poor, consistent with his diagnosis mentioned in my initial note. PLAN: No change from initial, but we will go ahead and taper and stop the Zyprexa down from 2.5 b.i.d. to 2.5 once a day for 3 days, then discontinue, since he remains on Seroquel 25 q.i.d. and Depakote 500 mg daily. Valproic acid level is therapeutic, Remeron 7.5 mg at bedtime and Zoloft 50 mg a day. MAN Nalini CERRATO MD DR: MARY/reed JOB#: [id number] / [id number]
--- NOTE | 2018-07-18 01:25 | PDOC ---
Exam Note: Uriah Note: Please also refer to the separate dictated note~for this date of service dictated separately.~Patient seen individually. Discussed the patient with Nursing staff reviewed the chart.~Reviewed interim history and current functioning. Reviewed vital signs,~Labs/ Radiology~and current medications noted below. Continue current treatment with the changes noted in the dictated addendum note Assessment: Vital Signs: Vital Signs Date Time Temp Pulse Resp B/P (MAP) Pulse Ox O2 Delivery O2 Flow Rate FiO2 07/17/18 16:11 98.6 94 22 124/74 (91) 94 Room Air I&O Intake and Output 07/18/18 07:00 Intake Total 1100 ml Output Total 150 ml Balance 950 ml Intake Oral 1100 ml Output Urine Total 150 ml # Voids 1 Labs: Laboratory Tests Test 07/17/18 09:03 White Blood Count 11.1 x10^3/uL (4.0-11.0) #H Red Blood Count 4.62 x10^6/uL (4.30-5.70) Hemoglobin 14.1 g/dL (13.0-17.5) Hematocrit 41.8 % (39.0-53.0) Mean Corpuscular Volume 91 fL (79-100) Mean Corpuscular Hemoglobin 31 pg (25-35) Mean Corpuscular Hemoglobin Concent 34 g/dL (31-37) Red Cell Distribution Width 14.1 % (11.5-14.5) Platelet Count 94 x10^3/uL (140-400) L Neutrophils (%) (Auto) 84 % (31-73) H Lymphocytes (%) (Auto) 5 % (24-48) L Monocytes (%) (Auto) 10 % (0-9) H Eosinophils (%) (Auto) 0 % (0-3) Basophils (%) (Auto) 0 % (0-3) Neutrophils # (Auto) 9.4 x10^3uL (1.8-7.7) H Lymphocytes # (Auto) 0.6 x10^3/uL (1.0-4.8) L Monocytes # (Auto) 1.1 x10^3/uL (0.0-1.1) Eosinophils # (Auto) 0.0 x10^3/uL (0.0-0.7) Basophils # (Auto) 0.0 x10^3/uL (0.0-0.2) Sodium Level 148 mmol/L (136-145) H Potassium Level 3.5 mmol/L (3.5-5.1) Chloride Level 109 mmol/L (98-107) H Carbon Dioxide Level 30 mmol/L (21-32) Anion Gap 9 (6-14) Blood Urea Nitrogen 19 mg/dL (8-26) Creatinine 0.9 mg/dL (0.7-1.3) Estimated GFR (Cockcroft-Gault) 83.2 BUN/Creatinine Ratio 21 (6-20) H Glucose Level 138 mg/dL (70-99) H Calcium Level 9.1 mg/dL (8.5-10.1) Total Bilirubin 1.0 mg/dL (0.2-1.0) Aspartate Amino Transferase (AST) 19 U/L (15-37) Alanine Aminotransferase (ALT) 40 U/L (16-63) Alkaline Phosphatase 66 U/L (46-116) Total Protein 7.3 g/dL (6.4-8.2) Albumin 3.2 g/dL (3.4-5.0) L Albumin/Globulin Ratio 0.8 (1.0-1.7) L Current Medications: Meds: Current Medications Acetaminophen (Tylenol) 650 mg PRN Q6HRS PRN PO PAIN / TEMP; Start 07/06/18 at 01:00 Multi-Ingredient Ointment (Analgesic [place]) 1 lawrence PRN QID PRN TP MUSCLE PAIN; Start 07/06/18 at 01:00 Al Hydroxide/Mg Hydroxide (Mylanta Plus Xs) 15 ml PRN AFTMEALHC PRN PO DYSPEPSIA; Start 07/06/18 at 01:00 Magnesium Hydroxide (Milk Of Magnesia) 2,400 mg PRN QHS PRN PO CONSTIPATION; Start 07/06/18 at 01:00 Citalopram Hydrobromide (CeleXA) 20 mg DAILY PO Last administered on 07/15/18at 09:22; Start 07/06/18 at 09:00; Stop 07/15/18 at 18:48; Status DC Alprazolam (Xanax) 0.5 mg TID PO Last administered on 07/08/18at 14:00; Start 07/06/18 at 09:00; Stop 07/08/18 at 17:06; Status DC Divalproex Sodium (Depakote) 500 mg BID PO ; Start 07/06/18 at 09:00; Stop at 09:31; Status DC Memantine (Namenda) 10 mg BID PO Last administered on 07/08/18at 08:54; Start 07/06/18 at 09:00; Stop 07/08/18 at 17:06; Status DC Quetiapine Fumarate (SEROquel) 50 mg BID PO Last administered on 07/08/18at 08:54 ; Start 07/06/18 at 09:00; Stop 07/08/18 at 17:06; Status DC Rivastigmine (Exelon) 1 patch DAILY TD Last administered on 07/08/18at 08:54; Start 07/06/18 at 09:00; Stop 07/08/18 at 17:06; Status DC Cetirizine HCl (ZyrTEC) 10 mg DAILY PO Last administered on 07/17/18at 09:06; Start 07/06/18 at 09:00 Divalproex Sodium (Depakote Sprinkles) 500 mg BID PO Last administered on at 20:32; Start 07/06/18 at 09:45 Olanzapine (ZyPREXA ZYDIS) 2.5 mg PRN Q2HR PRN PO PSYCHOSIS Last administered on 07/15/18at 21:41; Start 07/06/18 at 14:15 Tamsulosin HCl (Flomax) 0.4 mg QHS PO Last administered on 07/10/18at 19:30; Start 07/07/18 at 21:00; Stop 07/11/18 at 18:51; Status DC Vitamin D (Vitamin D3) 50,000 unit WEEKLY PO Last administered on 07/14/18 09: 12; Start 07/07/18 at 14:15 Hydroxyzine HCl (Atarax) 25 mg PRN Q2HR PRN PO ANXIETY / AGITATION Last administered on 07/15/18 21:41; Start 07/07/18 at 16:45 Alprazolam (Xanax) 0.25 mg QID PO Last administered on 07/13/18 21:19; Start 07/08/18 at 21:00; Stop 07/14/18 at 01:16; Status DC Quetiapine Fumarate (SEROquel) 25 mg QID PO Last administered on 07/15/18at 09: 22; Start 07/08/18 at 21:00; Stop 07/15/18 at 12:47; Status DC Mirtazapine (Remeron) 7.5 mg QHS PO Last administered on 07/17/18at 20:32; Start 07/09/18 at 21:00 Tamsulosin HCl (Flomax) 0.8 mg QHS PO Last administered on 07/17/18at 20:32; Start 07/11/18 at 21:00 Alprazolam (Xanax) 0.25 mg TID PO Last administered on 07/16/18at 21:01; Start 07/14/18 at 09:00; Stop 07/16/18 at 23:00; Status DC Alprazolam (Xanax) 0.25 mg BID PO Last administered on 07/17/18at 20:32; Start 07/17/18 at 09:00; Stop 07/19/18 at 23:00 Alprazolam (Xanax) 0.25 mg DAILY PO ; Start 07/20/18 at 09:00; Stop 07/22/18 at 23:00 Glycerin (Sani-Supp Adult) 1 supp PRN DAILY PRN [place] CONSTIPATION Last administered on 07/16/18at 21:59; Start 07/14/18 at 16:15 Quetiapine Fumarate (SEROquel) 25 mg QID PO Last administered on 07/17/18at 20: 32; Start 07/15/18 at 13:00 Sertraline HCl (Zoloft) 50 mg DAILY PO Last administered on 07/17/18at 09:06; Start 07/16/18 at 09:00 Active Scripts Active Reported Olanzapine Inj (Olanzapine) 10 Mg Vial 5 Mg IM PRN Q8HRS PRN Cetirizine Hcl 10 Mg Tablet 10 Mg PO DAILY EXELON 4.6mg/24hr (Rivastigmine) 1 Each Patch.td24 1 Patch TD DAILY Seroquel (Quetiapine Fumarate) 50 Mg Tablet 50 Mg PO BID Namenda (Memantine Hcl) 10 Mg Tablet 10 Mg PO BID Divalproex Sodium Er (Divalproex Sodium) 500 Mg Tab.er.24h 500 Mg PO BID Haldol (Haloperidol Lactate) 5 Mg/1 Ml Ampul 2.5 Mg IM PRN Q6HRS PRN Alprazolam 0.5 Mg Tablet 0.5 Mg PO TID Citalopram Hbr (Citalopram Hydrobromide) 20 Mg Tablet 20 Mg PO DAILY I have reviewed the current psychotropics carefully including drug interactions. Risk benefit ratio favors no change other than as noted in my dictated progress note. Diagnosis: Problems: (1) Anxiety disorder (2) Dementia in Alzheimer's disease with delusions (3) Dementia in Alzheimer's disease with depression (4) Dementia, vascular, with delusions (5) Dementia, vascular, with depression (6) Dementia of the Alzheimer's type with early onset with behavioral disturbance (7) Impulse control disorder SHAW CERRATO MD Jul 18, 2018 01:25
[2018-07-18] MEDS: GLYCERIN ADULT 1 SUPP.RECT. PR PRN ×2 (02:11→18:00)
[2018-07-18 06:06] VITALS: BP 113/67
[2018-07-18] MEDS: DIVALPROEX 125 MG CAP.SPRINK PO SCH ×2 (07:37→21:30)
[2018-07-18] MEDS: CETIRIZINE HCL 10 MG TABLET PO SCH (07:37)
[2018-07-18] MEDS: QUEtiapine 25 MG TABLET. PO SCH ×4 (07:37→21:30)
[2018-07-18] MEDS: SERTRALINE 50 MG TABLET. PO SCH (07:37)
[2018-07-18] MEDS: ALPRAZolam 0.25 MG TABLET PO SCH ×2 (07:40→21:30)
[2018-07-18 09:37] LABS: BASO % 0 % (0-3); EOS % 0 % (0-3); HEMATOCRIT 38.4 % (39.0-53.0); HEMOGLOBIN 12.9 g/dL (13.0-17.5); LYMPH % 9 % (24-48); MEAN CORPUSCULAR HEMOGLOBIN 30 pg (25-35); MEAN CORPUSCULAR HGB CONC 34 g/dL (31-37); MEAN CORPUSCULAR VOLUME 90 fL (79-100); MONO # 1.2 x10^3/uL (0.0-1.1); MONO % 11 % (0-9); NEUT # 9.1 x10^3uL (1.8-7.7); NEUT % 80 % (31-73); PLATELET COUNT 82 x10^3/uL (140-400); RED BLOOD COUNT 4.27 x10^6/uL (4.30-5.70); WHITE BLOOD COUNT 11.3 x10^3/uL (4.0-11.0)
[2018-07-18 11:42] LABS: BILIRUBIN,URINE NEG (NEG); CLARITY,URINE HAZY; COLOR,URINE AMBER; GLUCOSE,URINE NEG (NEG)
[2018-07-18 11:43] LABS: BACTERIA,URINE MOD /HPF (0-FEW); NITRITE,URINE POS (NEG); SQUAMOUS EPITHELIAL CELL,UR OCC /LPF; UROBILINOGEN,URINE 2 mg/dL (0.2 mg/dL); WBC,URINE 20-40 /HPF (0-4)
--- NOTE | 2018-07-18 13:05 | PN ---
DATE: 07/17/2018 PSYCHIATRIC PROGRESS NOTE This is a late entry, 07/17, covers elements not covered in my initial note. SUBJECTIVE: I met with the patient in the evening, staffed at treatment team meeting with the entire team in the morning. The patient's , Ni, attended this conference together with the 's friend who was here for the previous conference as well. Lengthy discussion about diagnosis, progress, prognosis, disposition plans. has had an informational meeting with [facility], is considering this as well. Valproic acid level is therapeutic. He takes meds, catheter could not be removed as he had recurrent urinary retention and continues to have some constipation because he is not ambulating very much. REVIEW OF SYSTEMS: Ambulation impaired, in Broda chair. No CV, , pulmonary, eye, ENT system symptoms on review. Reliability poor. MENTAL STATUS EXAM: Oriented to himself. Insight, judgment, recent and remote memory, attention, concentration, fund of knowledge poor, consistent with his diagnosis mentioned in my initial note. PLAN: No change from initial note. Continue current psychotropics including Depakote at therapeutic level. Xanax is being tapered. We will consider tapering Seroquel depending on how he does initially. SHAW CERRATO MD DR: MARY/reed JOB#: [id number] / [id number]
[2018-07-18 16:01] VITALS: BP 122/65
--- NOTE | 2018-07-18 20:28 | PDOC ---
Exam Note: Uriah Note: Please also refer to the separate dictated note~for this date of service dictated separately.~Patient seen individually. Discussed the patient with Nursing staff reviewed the chart.~Reviewed interim history and current functioning. Reviewed vital signs,~Labs/ Radiology~and current medications noted below. Continue current treatment with the changes noted in the dictated addendum note Assessment: Vital Signs: Vital Signs Date Time Temp Pulse Resp B/P (MAP) Pulse Ox O2 Delivery O2 Flow Rate FiO2 07/18/18 16:01 98.4 88 18 122/65 (84) 95 Room Air I&O Intake and Output 07/18/18 06:59 Intake Total 1100 ml Output Total 600 ml Balance 500 ml Intake Oral 1100 ml Output Urine Total 600 ml # Voids 1 Labs: Laboratory Tests Test 07/18/18 09:27 07/18/18 11:05 White Blood Count 11.3 x10^3/uL (4.0-11.0) H Red Blood Count 4.27 x10^6/uL (4.30-5.70) L Hemoglobin 12.9 g/dL (13.0-17.5) L Hematocrit 38.4 % (39.0-53.0) L Mean Corpuscular Volume 90 fL (79-100) Mean Corpuscular Hemoglobin 30 pg (25-35) Mean Corpuscular Hemoglobin Concent 34 g/dL (31-37) Red Cell Distribution Width 14.0 % (11.5-14.5) Platelet Count 82 x10^3/uL (140-400) L Neutrophils (%) (Auto) 80 % (31-73) H Lymphocytes (%) (Auto) 9 % (24-48) L Monocytes (%) (Auto) 11 % (0-9) H Eosinophils (%) (Auto) 0 % (0-3) Basophils (%) (Auto) 0 % (0-3) Neutrophils # (Auto) 9.1 x10^3uL (1.8-7.7) H Lymphocytes # (Auto) 1.0 x10^3/uL (1.0-4.8) Monocytes # (Auto) 1.2 x10^3/uL (0.0-1.1) H Eosinophils # (Auto) 0.0 x10^3/uL (0.0-0.7) Basophils # (Auto) 0.0 x10^3/uL (0.0-0.2) Urine Collection Type Unknown Urine Color [place] Urine Clarity Hazy Urine pH 6.0 Urine Specific [place] 1.025 Urine Protein 100 mg/dl (NEG-TRACE) Urine Glucose (UA) Neg mg/dL (NEG) Urine Ketones (Stick) 40 mg/dL (NEG) Urine Blood Mod (NEG) Urine Nitrite Pos (NEG) Urine Bilirubin Neg (NEG) Urine Urobilinogen Dipstick 2 mg/dL (0.2 mg/dL) Urine Leukocyte Esterase Small (NEG) Urine RBC 6-10 /HPF (0-2) Urine WBC 20-40 /HPF (0-4) Urine Squamous Epithelial Cells Occ /LPF Urine Bacteria Mod /HPF (0-FEW) Urine Mucus Slight /LPF Current Medications: Meds: Current Medications Acetaminophen (Tylenol) 650 mg PRN Q6HRS PRN PO PAIN / TEMP; Start 07/06/18 at 01:00 Multi-Ingredient Ointment (Analgesic [place]) 1 lawrence PRN QID PRN TP MUSCLE PAIN; Start 07/06/18 at 01:00 Al Hydroxide/Mg Hydroxide (Mylanta Plus Xs) 15 ml PRN AFTMEALHC PRN PO DYSPEPSIA; Start 07/06/18 at 01:00 Magnesium Hydroxide (Milk Of Magnesia) 2,400 mg PRN QHS PRN PO CONSTIPATION Last administered on 07/18/18at 17:49; Start 07/06/18 at 01:00 Citalopram Hydrobromide (CeleXA) 20 mg DAILY PO Last administered on 07/15/18at 09:22; Start 07/06/18 at 09:00; Stop 07/15/18 at 18:48; Status DC Alprazolam (Xanax) 0.5 mg TID PO Last administered on 07/08/18at 14:00; Start 07/06/18 at 09:00; Stop 07/08/18 at 17:06; Status DC Divalproex Sodium (Depakote) 500 mg BID PO ; Start 07/06/18 at 09:00; Stop at 09:31; Status DC Memantine (Namenda) 10 mg BID PO Last administered on 07/08/18at 08:54; Start 07/06/18 at 09:00; Stop 07/08/18 at 17:06; Status DC Quetiapine Fumarate (SEROquel) 50 mg BID PO Last administered on 07/08/18 08:54 ; Start 07/06/18 at 09:00; Stop 07/08/18 at 17:06; Status DC Rivastigmine (Exelon) 1 patch DAILY TD Last administered on 07/08/18 08:54; Start 07/06/18 at 09:00; Stop 07/08/18 at 17:06; Status DC Cetirizine HCl (ZyrTEC) 10 mg DAILY PO Last administered on 07/18/18at 07:37; Start 07/06/18 at 09:00 Divalproex Sodium (Depakote Sprinkles) 500 mg BID PO Last administered on at 07:37; Start 07/06/18 at 09:45 Olanzapine (ZyPREXA ZYDIS) 2.5 mg PRN Q2HR PRN PO PSYCHOSIS Last administered on 07/15/18 21:41; Start 07/06/18 at 14:15 Tamsulosin HCl (Flomax) 0.4 mg QHS PO Last administered on 07/10/18 19:30; Start 07/07/18 at 21:00; Stop 07/11/18 at 18:51; Status DC Vitamin D (Vitamin D3) 50,000 unit WEEKLY PO Last administered on 07/14/18 09: 12; Start 07/07/18 at 14:15 Hydroxyzine HCl (Atarax) 25 mg PRN Q2HR PRN PO ANXIETY / AGITATION Last administered on 07/15/18 21:41; Start 07/07/18 at 16:45 Alprazolam (Xanax) 0.25 mg QID PO Last administered on 07/13/18 21:19; Start 07/08/18 at 21:00; Stop 07/14/18 at 01:16; Status DC Quetiapine Fumarate (SEROquel) 25 mg QID PO Last administered on 07/15/18 09: 22; Start 07/08/18 at 21:00; Stop 07/15/18 at 12:47; Status DC Mirtazapine (Remeron) 7.5 mg QHS PO Last administered on 07/17/18at 20:32; Start 07/09/18 at 21:00 Tamsulosin HCl (Flomax) 0.8 mg QHS PO Last administered on 07/17/18at 20:32; Start 07/11/18 at 21:00 Alprazolam (Xanax) 0.25 mg TID PO Last administered on 07/16/18at 21:01; Start 07/14/18 at 09:00; Stop 07/16/18 at 23:00; Status DC Alprazolam (Xanax) 0.25 mg BID PO Last administered on 07/18/18at 07:40; Start 07/17/18 at 09:00; Stop 07/19/18 at 23:00 Alprazolam (Xanax) 0.25 mg DAILY PO ; Start 07/20/18 at 09:00; Stop 07/22/18 at 23:00 Glycerin (Sani-Supp Adult) 1 supp PRN DAILY PRN SC CONSTIPATION Last administered on 07/18/18at 18:00; Start 07/14/18 at 16:15 Quetiapine Fumarate (SEROquel) 25 mg QID PO Last administered on 07/18/18at 17: 17; Start 07/15/18 at 13:00 Sertraline HCl (Zoloft) 50 mg DAILY PO Last administered on 07/18/18at 07:37; Start 07/16/18 at 09:00 Cefpodoxime Proxetil (Vantin) 200 mg BID PO ; Start 07/18/18 at 21:00; Stop at 21:00 Lactobacillus Rhamnosus (Culturelle) 1 cap BID PO ; Start 07/18/18 at 21:00 Active Scripts Active Reported Olanzapine Inj (Olanzapine) 10 Mg Vial 5 Mg IM PRN Q8HRS PRN Cetirizine Hcl 10 Mg Tablet 10 Mg PO DAILY EXELON 4.6mg/24hr (Rivastigmine) 1 Each Patch.td24 1 Patch TD DAILY Seroquel (Quetiapine Fumarate) 50 Mg Tablet 50 Mg PO BID Namenda (Memantine Hcl) 10 Mg Tablet 10 Mg PO BID Divalproex Sodium Er (Divalproex Sodium) 500 Mg Tab.er.24h 500 Mg PO BID Haldol (Haloperidol Lactate) 5 Mg/1 Ml Ampul 2.5 Mg IM PRN Q6HRS PRN Alprazolam 0.5 Mg Tablet 0.5 Mg PO TID Citalopram Hbr (Citalopram Hydrobromide) 20 Mg Tablet 20 Mg PO DAILY I have reviewed the current psychotropics carefully including drug interactions. Risk benefit ratio favors no change other than as noted in my dictated progress note. 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
[2018-07-18] MEDS: MIRTAZAPINE 7.5 MG TABLET. PO SCH (21:30)
[2018-07-18] MEDS: LACTOBACILLUS RHAMNOSUS GG 1 CAPSULE. PO SCH ×2 (21:30→21:31)
[2018-07-18] MEDS: TAMSULOSIN 0.4 MG CAP.ER.24H. PO SCH (21:31)
[2018-07-18] MEDS: CEFPODOXIME PROXETIL 100 MG TABLET PO SCH (21:31)
[2018-07-19 06:02] VITALS: BP 115/65
[2018-07-19] MEDS: CEFPODOXIME PROXETIL 100 MG TABLET PO SCH ×2 (08:18→20:25)
[2018-07-19] MEDS: CETIRIZINE HCL 10 MG TABLET PO SCH (08:18)
[2018-07-19] MEDS: SERTRALINE 50 MG TABLET. PO SCH (08:18)
[2018-07-19] MEDS: QUEtiapine 25 MG TABLET. PO SCH ×4 (08:18→20:25)
[2018-07-19] MEDS: ALPRAZolam 0.25 MG TABLET PO SCH ×2 (08:20→20:25)
[2018-07-19] MEDS: DIVALPROEX 125 MG CAP.SPRINK PO SCH ×2 (08:20→20:26)
[2018-07-19 16:33] VITALS: BP 108/61
[2018-07-19] MEDS: TAMSULOSIN 0.4 MG CAP.ER.24H. PO SCH (20:25)
[2018-07-19] MEDS: LACTOBACILLUS RHAMNOSUS GG 1 CAPSULE. PO SCH (20:25)
[2018-07-19] MEDS: MIRTAZAPINE 7.5 MG TABLET. PO SCH (20:25)
--- NOTE | 2018-07-19 22:21 | PDOC ---
Exam Note: Uriah Note: Please also refer to the separate dictated note~for this date of service dictated separately.~Patient seen individually. Discussed the patient with Nursing staff reviewed the chart.~Reviewed interim history and current functioning. Reviewed vital signs,~Labs/ Radiology~and current medications noted below. Continue current treatment with the changes noted in the dictated addendum note Assessment: Vital Signs: Vital Signs Date Time Temp Pulse Resp B/P (MAP) Pulse Ox O2 Delivery O2 Flow Rate FiO2 07/19/18 16:33 97.2 73 18 108/61 (77) 98 07/18/18 16:01 Room Air I&O Intake and Output 07/19/18 07:00 Intake Total 1440 ml Output Total 700 ml Balance 740 ml Intake Oral 1440 ml Output Urine Total 700 ml # Bowel Movements 2 Current Medications: Meds: Current Medications Acetaminophen (Tylenol) 650 mg PRN Q6HRS PRN PO PAIN / TEMP; Start 07/06/18 at 01:00 Multi-Ingredient Ointment (Analgesic [place]) 1 lawrence PRN QID PRN TP MUSCLE PAIN; Start 07/06/18 at 01:00 Al Hydroxide/Mg Hydroxide (Mylanta Plus Xs) 15 ml PRN AFTMEALHC PRN PO DYSPEPSIA; Start 07/06/18 at 01:00 Magnesium Hydroxide (Milk Of Magnesia) 2,400 mg PRN QHS PRN PO CONSTIPATION Last administered on 07/18/18at 17:49; Start 07/06/18 at 01:00 Citalopram Hydrobromide (CeleXA) 20 mg DAILY PO Last administered on 07/15/18at 09:22; Start 07/06/18 at 09:00; Stop 07/15/18 at 18:48; Status DC Alprazolam (Xanax) 0.5 mg TID PO Last administered on 07/08/18at 14:00; Start 07/06/18 at 09:00; Stop 07/08/18 at 17:06; Status DC Divalproex Sodium (Depakote) 500 mg BID PO ; Start 07/06/18 at 09:00; Stop at 09:31; Status DC Memantine (Namenda) 10 mg BID PO Last administered on 07/08/18at 08:54; Start 07/06/18 at 09:00; Stop 07/08/18 at 17:06; Status DC Quetiapine Fumarate (SEROquel) 50 mg BID PO Last administered on 07/08/18 08:54 ; Start 07/06/18 at 09:00; Stop 07/08/18 at 17:06; Status DC Rivastigmine (Exelon) 1 patch DAILY TD Last administered on 07/08/18 08:54; Start 07/06/18 at 09:00; Stop 07/08/18 at 17:06; Status DC Cetirizine HCl (ZyrTEC) 10 mg DAILY PO Last administered on 07/19/18 08:18; Start 07/06/18 at 09:00 Divalproex Sodium (Depakote Sprinkles) 500 mg BID PO Last administered on 20:26; Start 07/06/18 at 09:45 Olanzapine (ZyPREXA ZYDIS) 2.5 mg PRN Q2HR PRN PO PSYCHOSIS Last administered on 07/19/18at 08:20; Start 07/06/18 at 14:15 Tamsulosin HCl (Flomax) 0.4 mg QHS PO Last administered on 07/10/18 19:30; Start 07/07/18 at 21:00; Stop 07/11/18 at 18:51; Status DC Vitamin D (Vitamin D3) 50,000 unit WEEKLY PO Last administered on 07/14/18 09: 12; Start 07/07/18 at 14:15 Hydroxyzine HCl (Atarax) 25 mg PRN Q2HR PRN PO ANXIETY / AGITATION Last administered on 07/15/18at 21:41; Start 07/07/18 at 16:45 Alprazolam (Xanax) 0.25 mg QID PO Last administered on 07/13/18 21:19; Start 07/08/18 at 21:00; Stop 07/14/18 at 01:16; Status DC Quetiapine Fumarate (SEROquel) 25 mg QID PO Last administered on 07/15/18 09: 22; Start 07/08/18 at 21:00; Stop 07/15/18 at 12:47; Status DC Mirtazapine (Remeron) 7.5 mg QHS PO Last administered on 07/19/18at 20:25; Start 07/09/18 at 21:00 Tamsulosin HCl (Flomax) 0.8 mg QHS PO Last administered on 07/19/18 20:25; Start 07/11/18 at 21:00 Alprazolam (Xanax) 0.25 mg TID PO Last administered on 07/16/18at 21:01; Start 07/14/18 at 09:00; Stop 07/16/18 at 23:00; Status DC Alprazolam (Xanax) 0.25 mg BID PO Last administered on 07/19/18 20:25; Start 07/17/18 at 09:00; Stop 07/19/18 at 23:00 Alprazolam (Xanax) 0.25 mg DAILY PO ; Start 07/20/18 at 09:00; Stop 07/22/18 at 23:00 Glycerin (Sani-Supp Adult) 1 supp PRN DAILY PRN SC CONSTIPATION Last administered on 07/18/18at 18:00; Start 07/14/18 at 16:15 Quetiapine Fumarate (SEROquel) 25 mg QID PO Last administered on 07/19/18 20: 25; Start 07/15/18 at 13:00 Sertraline HCl (Zoloft) 50 mg DAILY PO Last administered on 07/19/18 08:18; Start 07/16/18 at 09:00 Cefpodoxime Proxetil (Vantin) 200 mg BID PO Last administered on 07/19/18 20: 25; Start 07/18/18 at 21:00; Stop 07/28/18 at 21:00 Lactobacillus Rhamnosus (Culturelle) 1 cap BID PO Last administered on at 20:25; Start 07/18/18 at 21:00 Active Scripts Active Reported Olanzapine Inj (Olanzapine) 10 Mg Vial 5 Mg IM PRN Q8HRS PRN Cetirizine Hcl 10 Mg Tablet 10 Mg PO DAILY EXELON 4.6mg/24hr (Rivastigmine) 1 Each Patch.td24 1 Patch TD DAILY Seroquel (Quetiapine Fumarate) 50 Mg Tablet 50 Mg PO BID Namenda (Memantine Hcl) 10 Mg Tablet 10 Mg PO BID Divalproex Sodium Er (Divalproex Sodium) 500 Mg Tab.er.24h 500 Mg PO BID Haldol (Haloperidol Lactate) 5 Mg/1 Ml Ampul 2.5 Mg IM PRN Q6HRS PRN Alprazolam 0.5 Mg Tablet 0.5 Mg PO TID Citalopram Hbr (Citalopram Hydrobromide) 20 Mg Tablet 20 Mg PO DAILY I have reviewed the current psychotropics carefully including drug interactions. Risk benefit ratio favors no change other than as noted in my dictated progress note. Diagnosis: Problems: (1) Anxiety disorder (2) Dementia in Alzheimer's disease with delusions (3) Dementia in Alzheimer's disease with depression (4) Dementia, vascular, with delusions (5) Dementia, vascular, with depression (6) Dementia of the Alzheimer's type with early onset with behavioral disturbance (7) Impulse control disorder SHAW CERRATO MD Jul 19, 2018 22:21
[2018-07-20 05:55] VITALS: BP 159/74
[2018-07-20] MEDS: SERTRALINE 50 MG TABLET. PO SCH (07:50)
[2018-07-20] MEDS: QUEtiapine 25 MG TABLET. PO SCH ×4 (07:51→20:20)
[2018-07-20] MEDS: DIVALPROEX 125 MG CAP.SPRINK PO SCH (07:51)
[2018-07-20] MEDS: CEFPODOXIME PROXETIL 100 MG TABLET PO SCH ×2 (07:51→20:20)
[2018-07-20] MEDS: CETIRIZINE HCL 10 MG TABLET PO SCH (07:51)
[2018-07-20] MEDS: LACTOBACILLUS RHAMNOSUS GG 1 CAPSULE. PO SCH ×2 (07:51→20:20)
[2018-07-20] MEDS: ALPRAZolam 0.25 MG TABLET PO SCH (07:52)
[2018-07-20 10:40] LABS: BASO % 0 % (0-3); EOS % 1 % (0-3); HEMATOCRIT 38.2 % (39.0-53.0); HEMOGLOBIN 12.9 g/dL (13.0-17.5); LYMPH # 0.8 x10^3/uL (1.0-4.8); LYMPH % 9 % (24-48); MEAN CORPUSCULAR HEMOGLOBIN 31 pg (25-35); MEAN CORPUSCULAR HGB CONC 34 g/dL (31-37); MEAN CORPUSCULAR VOLUME 91 fL (79-100); MONO # 1.3 x10^3/uL (0.0-1.1); MONO % 16 % (0-9); NEUT # 6.2 x10^3uL (1.8-7.7); NEUT % 75 % (31-73); PLATELET COUNT 106 x10^3/uL (140-400); RED BLOOD COUNT 4.21 x10^6/uL (4.30-5.70); RED CELL DISTRIBUTION WIDTH 14.2 % (11.5-14.5); WHITE BLOOD COUNT 8.3 x10^3/uL (4.0-11.0)
[2018-07-20 10:47] LABS: ALBUMIN 2.5 g/dL (3.4-5.0); ALBUMIN/GLOBULIN RATIO 0.6 (1.0-1.7); CALCIUM 8.5 mg/dL (8.5-10.1); CREATININE 0.9 mg/dL (0.7-1.3); GFR 83.2; POTASSIUM 3.3 mmol/L (3.5-5.1); TOTAL BILIRUBIN 0.8 mg/dL (0.2-1.0); TOTAL PROTEIN 6.6 g/dL (6.4-8.2)
[2018-07-20 16:30] VITALS: BP 110/63
[2018-07-20] MEDS: TAMSULOSIN 0.4 MG CAP.ER.24H. PO SCH (20:20)
[2018-07-20] MEDS: MIRTAZAPINE 7.5 MG TABLET. PO SCH (20:20)
[2018-07-20] MEDS: SENNOSIDES 8.6 MG TABLET PO SCH (20:21)
--- NOTE | 2018-07-20 20:57 | PDOC ---
Exam Note: Uriah Note: Please also refer to the separate dictated note~for this date of service dictated separately.~Patient seen individually. Discussed the patient with Nursing staff reviewed the chart.~Reviewed interim history and current functioning. Reviewed vital signs,~Labs/ Radiology~and current medications noted below. Continue current treatment with the changes noted in the dictated addendum note Assessment: Vital Signs: Vital Signs Date Time Temp Pulse Resp B/P (MAP) Pulse Ox O2 Delivery O2 Flow Rate FiO2 07/20/18 16:30 97.2 74 18 110/63 (79) 98 07/18/18 16:01 Room Air I&O Intake and Output 07/20/18 07:01 Intake Total 180 ml Output Total 600 ml Balance -420 ml Intake Oral 180 ml Output Urine Total 600 ml Labs: Laboratory Tests Test 07/20/18 10:08 White Blood Count 8.3 x10^3/uL (4.0-11.0) Red Blood Count 4.21 x10^6/uL (4.30-5.70) L Hemoglobin 12.9 g/dL (13.0-17.5) L Hematocrit 38.2 % (39.0-53.0) L Mean Corpuscular Volume 91 fL (79-100) Mean Corpuscular Hemoglobin 31 pg (25-35) Mean Corpuscular Hemoglobin Concent 34 g/dL (31-37) Red Cell Distribution Width 14.2 % (11.5-14.5) Platelet Count 106 x10^3/uL (140-400) L Neutrophils (%) (Auto) 75 % (31-73) H Lymphocytes (%) (Auto) 9 % (24-48) L Monocytes (%) (Auto) 16 % (0-9) H Eosinophils (%) (Auto) 1 % (0-3) Basophils (%) (Auto) 0 % (0-3) Neutrophils # (Auto) 6.2 x10^3uL (1.8-7.7) Lymphocytes # (Auto) 0.8 x10^3/uL (1.0-4.8) L Monocytes # (Auto) 1.3 x10^3/uL (0.0-1.1) H Eosinophils # (Auto) 0.0 x10^3/uL (0.0-0.7) Basophils # (Auto) 0.0 x10^3/uL (0.0-0.2) Sodium Level 146 mmol/L (136-145) H Potassium Level 3.3 mmol/L (3.5-5.1) L Chloride Level 107 mmol/L (98-107) Carbon Dioxide Level 30 mmol/L (21-32) Anion Gap 9 (6-14) Blood Urea Nitrogen 18 mg/dL (8-26) Creatinine 0.9 mg/dL (0.7-1.3) Estimated GFR (Cockcroft-Gault) 83.2 BUN/Creatinine Ratio 20 (6-20) Glucose Level 101 mg/dL (70-99) H Calcium Level 8.5 mg/dL (8.5-10.1) Total Bilirubin 0.8 mg/dL (0.2-1.0) Aspartate Amino Transferase (AST) 18 U/L (15-37) Alanine Aminotransferase (ALT) 29 U/L (16-63) Alkaline Phosphatase 58 U/L (46-116) Total Protein 6.6 g/dL (6.4-8.2) Albumin 2.5 g/dL (3.4-5.0) L Albumin/Globulin Ratio 0.6 (1.0-1.7) L Current Medications: Meds: Current Medications Acetaminophen (Tylenol) 650 mg PRN Q6HRS PRN PO PAIN / TEMP; Start 07/06/18 at 01:00 Multi-Ingredient Ointment (Analgesic [place]) 1 [place]rence PRN QID PRN TP MUSCLE PAIN; Start 07/06/18 at 01:00 Al Hydroxide/Mg Hydroxide (Mylanta Plus Xs) 15 ml PRN AFTMEALHC PRN PO DYSPEPSIA; Start 07/06/18 at 01:00 Magnesium Hydroxide (Milk Of Magnesia) 2,400 mg PRN QHS PRN PO CONSTIPATION Last administered on 07/18/18at 17:49; Start 07/06/18 at 01:00 Citalopram Hydrobromide (CeleXA) 20 mg DAILY PO Last administered on 07/15/18at 09:22; Start 07/06/18 at 09:00; Stop 07/15/18 at 18:48; Status DC Alprazolam (Xanax) 0.5 mg TID PO Last administered on 07/08/18at 14:00; Start 07/06/18 at 09:00; Stop 07/08/18 at 17:06; Status DC Divalproex Sodium (Depakote) 500 mg BID PO ; Start 07/06/18 at 09:00; Stop at 09:31; Status DC Memantine (Namenda) 10 mg BID PO Last administered on 07/08/18at 08:54; Start 07/06/18 at 09:00; Stop 07/08/18 at 17:06; Status DC Quetiapine Fumarate (SEROquel) 50 mg BID PO Last administered on 07/08/18at 08:54 ; Start 07/06/18 at 09:00; Stop 07/08/18 at 17:06; Status DC Rivastigmine (Exelon) 1 patch DAILY TD Last administered on 07/08/18at 08:54; Start 07/06/18 at 09:00; Stop 07/08/18 at 17:06; Status DC Cetirizine HCl (ZyrTEC) 10 mg DAILY PO Last administered on 07/20/18at 07:51; Start 07/06/18 at 09:00 Divalproex Sodium (Depakote Sprinkles) 500 mg BID PO Last administered on at 07:51; Start 07/06/18 at 09:45; Stop 07/20/18 at 18:21; Status DC Olanzapine (ZyPREXA ZYDIS) 2.5 mg PRN Q2HR PRN PO PSYCHOSIS Last administered on 07/20/18at 07:52; Start 07/06/18 at 14:15 Tamsulosin HCl (Flomax) 0.4 mg QHS PO Last administered on 07/10/18at 19:30; Start 07/07/18 at 21:00; Stop 07/11/18 at 18:51; Status DC Vitamin D (Vitamin D3) 50,000 unit WEEKLY PO Last administered on 07/14/18at 09: 12; Start 07/07/18 at 14:15 Hydroxyzine HCl (Atarax) 25 mg PRN Q2HR PRN PO ANXIETY / AGITATION Last administered on 07/15/18at 21:41; Start 07/07/18 at 16:45 Alprazolam (Xanax) 0.25 mg QID PO Last administered on 07/13/18 21:19; Start 07/08/18 at 21:00; Stop 07/14/18 at 01:16; Status DC Quetiapine Fumarate (SEROquel) 25 mg QID PO Last administered on 07/15/18at 09: 22; Start 07/08/18 at 21:00; Stop 07/15/18 at 12:47; Status DC Mirtazapine (Remeron) 7.5 mg QHS PO Last administered on 07/20/18at 20:20; Start 07/09/18 at 21:00 Tamsulosin HCl (Flomax) 0.8 mg QHS PO Last administered on 07/20/18 20:20; Start 07/11/18 at 21:00 Alprazolam (Xanax) 0.25 mg TID PO Last administered on 07/16/18at 21:01; Start 07/14/18 at 09:00; Stop 07/16/18 at 23:00; Status DC Alprazolam (Xanax) 0.25 mg BID PO Last administered on 07/19/18at 20:25; Start 07/17/18 at 09:00; Stop 07/19/18 at 23:00; Status DC Alprazolam (Xanax) 0.25 mg DAILY PO Last administered on 07/20/18at 07:52; Start 07/20/18 at 09:00; Stop 07/22/18 at 23:00 Glycerin (Sani-Supp Adult) 1 supp PRN DAILY PRN ME CONSTIPATION Last administered on 07/18/18at 18:00; Start 07/14/18 at 16:15 Quetiapine Fumarate (SEROquel) 25 mg QID PO Last administered on 07/20/18 20: 20; Start 07/15/18 at 13:00 Sertraline HCl (Zoloft) 50 mg DAILY PO Last administered on 07/20/18at 07:50; Start 07/16/18 at 09:00 Cefpodoxime Proxetil (Vantin) 200 mg BID PO Last administered on 07/20/18 20: 20; Start 07/18/18 at 21:00; Stop 07/28/18 at 21:00 Lactobacillus Rhamnosus (Culturelle) 1 cap BID PO Last administered on at 20:20; Start 07/18/18 at 21:00 Sennosides (Senna) 8.6 mg BID PO Last administered on 07/20/18at 20:21; Start at 21:00 Active Scripts Active Reported Olanzapine Inj (Olanzapine) 10 Mg Vial 5 Mg IM PRN Q8HRS PRN Cetirizine Hcl 10 Mg Tablet 10 Mg PO DAILY EXELON 4.6mg/24hr (Rivastigmine) 1 Each Patch.td24 1 Patch TD DAILY Seroquel (Quetiapine Fumarate) 50 Mg Tablet 50 Mg PO BID Namenda (Memantine Hcl) 10 Mg Tablet 10 Mg PO BID Divalproex Sodium Er (Divalproex Sodium) 500 Mg Tab.er.24h 500 Mg PO BID Haldol (Haloperidol Lactate) 5 Mg/1 Ml Ampul 2.5 Mg IM PRN Q6HRS PRN Alprazolam 0.5 Mg Tablet 0.5 Mg PO TID Citalopram Hbr (Citalopram Hydrobromide) 20 Mg Tablet 20 Mg PO DAILY I have reviewed the current psychotropics carefully including drug interactions. Risk benefit ratio favors no change other than as noted in my dictated progress note. Diagnosis: Problems: (1) Anxiety disorder (2) Dementia in Alzheimer's disease with delusions (3) Dementia in Alzheimer's disease with depression (4) Dementia, vascular, with delusions (5) Dementia, vascular, with depression (6) Dementia of the Alzheimer's type with early onset with behavioral disturbance (7) Impulse control disorder SHAW CERRATO MD Jul 20, 2018 20:57
--- NOTE | 2018-07-20 22:53 | PN ---
DATE: 07/18/2018 PSYCHIATRIC PROGRESS NOTE This is a late entry 07/18/2018 covers elements not covered in my initial note. SUBJECTIVE: I met with the patient in the evening. Overall, the patient remains restless at night, anxious, constantly moving, fall risk in a Broda chair. REVIEW OF SYSTEMS: No CV, , pulmonary, eye, ENT system symptoms on review, reliability poor. MENTAL STATUS EXAM: Oriented to himself. Insight, judgment, recent and remote memory, attention, concentration, fund of knowledge poor, consistent with his diagnosis mentioned in my initial note. The patient also has a UTI and is on Vantin. PLAN: He continues to have chronic constipation, addressed this symptomatically. May start Senna for this, Vantin for his UTI. Xanax is being tapered. Continue rest unchanged. If sedation, lack of ambulation is a persistent problem despite resolution of UTI, we may discontinue the Depakote, but we will continue Seroquel along with Zoloft for now, Remeron and Atarax p.r.n. SHAW CERRATO MD DR: MARY/reed JOB#: [id number] / [id number]
[2018-07-21 06:00] VITALS: BP 131/76
[2018-07-21] MEDS: QUEtiapine 25 MG TABLET. PO SCH ×4 (08:25→21:17)
[2018-07-21] MEDS: LACTOBACILLUS RHAMNOSUS GG 1 CAPSULE. PO SCH ×2 (08:25→21:17)
[2018-07-21] MEDS: SENNOSIDES 8.6 MG TABLET PO SCH ×2 (08:25→21:17)
[2018-07-21] MEDS: SERTRALINE 50 MG TABLET. PO SCH (08:25)
[2018-07-21] MEDS: CETIRIZINE HCL 10 MG TABLET PO SCH (08:25)
[2018-07-21] MEDS: CEFPODOXIME PROXETIL 100 MG TABLET PO SCH (08:25)
[2018-07-21] MEDS: ALPRAZolam 0.25 MG TABLET PO SCH (08:27)
[2018-07-21] MEDS: CHOLECALCIFEROL (VITAMIN D3) 50,000 UNIT CAPSULE PO SCH (08:27)
--- NOTE | 2018-07-21 13:32 | PN ---
DATE: 07/19/2018 PSYCHIATRIC PROGRESS NOTE This is a late entry, 07/19, covers elements not covered in my initial note. SUBJECTIVE: I met with the patient in the morning. The patient had a large bowel movement, seemed a little less anxious since then. Still very confused. Nursing staff will shave him this morning. REVIEW OF SYSTEMS: No CV, , pulmonary, eye, ENT system symptoms on review. Reliability poor. Gait unsteady, in Broda chair. MENTAL STATUS EXAM: Oriented to himself. Insight, judgment, recent and remote memory, attention, concentration, fund of knowledge poor, consistent with his diagnosis mentioned in my initial note. PLAN: No change from initial note. Taper and stop the Xanax. Consider stopping Depakote if impaired ambulation, disorganization persist despite no aggression. Rest unchanged from initial note. MAN Nalini CERRATO MD DR: MARY/reed JOB#: [id number] / [id number]
[2018-07-21 15:49] VITALS: BP 109/70
--- NOTE | 2018-07-21 20:59 | PDOC ---
Exam Note: Uriah Note: Please also refer to the separate dictated note~for this date of service dictated separately.~Patient seen individually. Discussed the patient with Nursing staff reviewed the chart.~Reviewed interim history and current functioning. Reviewed vital signs,~Labs/ Radiology~and current medications noted below. Continue current treatment with the changes noted in the dictated addendum note Assessment: Vital Signs: Vital Signs Date Time Temp Pulse Resp B/P (MAP) Pulse Ox O2 Delivery O2 Flow Rate FiO2 07/21/18 15:49 97.7 90 22 109/70 (83) 93 07/18/18 16:01 Room Air I&O Intake and Output 07/21/18 07:01 Intake Total 1020 ml Output Total 525 ml Balance 495 ml Intake Oral 1020 ml Output Urine Total 525 ml # Bowel Movements 1 Current Medications: Meds: Current Medications Acetaminophen (Tylenol) 650 mg PRN Q6HRS PRN PO PAIN / TEMP; Start 07/06/18 at 01:00 Multi-Ingredient Ointment (Analgesic [place]) 1 lawrence PRN QID PRN TP MUSCLE PAIN; Start 07/06/18 at 01:00 Al Hydroxide/Mg Hydroxide (Mylanta Plus Xs) 15 ml PRN AFTMEALHC PRN PO DYSPEPSIA; Start 07/06/18 at 01:00 Magnesium Hydroxide (Milk Of Magnesia) 2,400 mg PRN QHS PRN PO CONSTIPATION Last administered on 07/18/18at 17:49; Start 07/06/18 at 01:00 Citalopram Hydrobromide (CeleXA) 20 mg DAILY PO Last administered on 07/15/18at 09:22; Start 07/06/18 at 09:00; Stop 07/15/18 at 18:48; Status DC Alprazolam (Xanax) 0.5 mg TID PO Last administered on 07/08/18at 14:00; Start 07/06/18 at 09:00; Stop 07/08/18 at 17:06; Status DC Divalproex Sodium (Depakote) 500 mg BID PO ; Start 07/06/18 at 09:00; Stop at 09:31; Status DC Memantine (Namenda) 10 mg BID PO Last administered on 07/08/18at 08:54; Start 07/06/18 at 09:00; Stop 07/08/18 at 17:06; Status DC Quetiapine Fumarate (SEROquel) 50 mg BID PO Last administered on 07/08/18at 08:54 ; Start 07/06/18 at 09:00; Stop 07/08/18 at 17:06; Status DC Rivastigmine (Exelon) 1 patch DAILY TD Last administered on 07/08/18at 08:54; Start 07/06/18 at 09:00; Stop 07/08/18 at 17:06; Status DC Cetirizine HCl (ZyrTEC) 10 mg DAILY PO Last administered on 07/21/18at 08:25; Start 07/06/18 at 09:00 Divalproex Sodium (Depakote Sprinkles) 500 mg BID PO Last administered on at 07:51; Start 07/06/18 at 09:45; Stop 07/20/18 at 18:21; Status DC Olanzapine (ZyPREXA ZYDIS) 2.5 mg PRN Q2HR PRN PO PSYCHOSIS Last administered on 07/21/18at 00:05; Start 07/06/18 at 14:15 Tamsulosin HCl (Flomax) 0.4 mg QHS PO Last administered on 07/10/18at 19:30; Start 07/07/18 at 21:00; Stop 07/11/18 at 18:51; Status DC Vitamin D (Vitamin D3) 50,000 unit WEEKLY PO Last administered on 07/21/18at 08: 27; Start 07/07/18 at 14:15 Hydroxyzine HCl (Atarax) 25 mg PRN Q2HR PRN PO ANXIETY / AGITATION Last administered on 07/15/18at 21:41; Start 07/07/18 at 16:45 Alprazolam (Xanax) 0.25 mg QID PO Last administered on 07/13/18at 21:19; Start 07/08/18 at 21:00; Stop 07/14/18 at 01:16; Status DC Quetiapine Fumarate (SEROquel) 25 mg QID PO Last administered on 07/15/18at 09: 22; Start 07/08/18 at 21:00; Stop 07/15/18 at 12:47; Status DC Mirtazapine (Remeron) 7.5 mg QHS PO Last administered on 07/20/18 20:20; Start 07/09/18 at 21:00 Tamsulosin HCl (Flomax) 0.8 mg QHS PO Last administered on 07/20/18 20:20; Start 07/11/18 at 21:00 Alprazolam (Xanax) 0.25 mg TID PO Last administered on 07/16/18at 21:01; Start 07/14/18 at 09:00; Stop 07/16/18 at 23:00; Status DC Alprazolam (Xanax) 0.25 mg BID PO Last administered on 07/19/18 20:25; Start 07/17/18 at 09:00; Stop 07/19/18 at 23:00; Status DC Alprazolam (Xanax) 0.25 mg DAILY PO Last administered on 07/21/18at 08:27; Start 07/20/18 at 09:00; Stop 07/22/18 at 23:00 Glycerin (Sani-Supp Adult) 1 supp PRN DAILY PRN [place] CONSTIPATION Last administered on 07/18/18at 18:00; Start 07/14/18 at 16:15 Quetiapine Fumarate (SEROquel) 25 mg QID PO Last administered on 07/21/18at 17: 36; Start 07/15/18 at 13:00 Sertraline HCl (Zoloft) 50 mg DAILY PO Last administered on 07/21/18at 08:25; Start 07/16/18 at 09:00 Cefpodoxime Proxetil (Vantin) 200 mg BID PO Last administered on 07/21/18at 08: 25; Start 07/18/18 at 21:00; Stop 07/21/18 at 14:47; Status DC Lactobacillus Rhamnosus (Culturelle) 1 cap BID PO Last administered on 08:25; Start 07/18/18 at 21:00 Sennosides (Senna) 8.6 mg BID PO Last administered on 07/21/18at 08:25; Start at 21:00 Ciprofloxacin (Cipro) 500 mg BID PO ; Start 07/21/18 at 21:00 Potassium Chloride (Klor-Con) 20 meq TID PO ; Start 07/21/18 at 21:00 Active Scripts Active Reported Olanzapine Inj (Olanzapine) 10 Mg Vial 5 Mg IM PRN Q8HRS PRN Cetirizine Hcl 10 Mg Tablet 10 Mg PO DAILY EXELON 4.6mg/24hr (Rivastigmine) 1 Each Patch.td24 1 Patch TD DAILY Seroquel (Quetiapine Fumarate) 50 Mg Tablet 50 Mg PO BID Namenda (Memantine Hcl) 10 Mg Tablet 10 Mg PO BID Divalproex Sodium Er (Divalproex Sodium) 500 Mg Tab.er.24h 500 Mg PO BID Haldol (Haloperidol Lactate) 5 Mg/1 Ml Ampul 2.5 Mg IM PRN Q6HRS PRN Alprazolam 0.5 Mg Tablet 0.5 Mg PO TID Citalopram Hbr (Citalopram Hydrobromide) 20 Mg Tablet 20 Mg PO DAILY I have reviewed the current psychotropics carefully including drug interactions. Risk benefit ratio favors no change other than as noted in my dictated progress note. Diagnosis: Problems: (1) Anxiety disorder (2) Dementia in Alzheimer's disease with delusions (3) Dementia in Alzheimer's disease with depression (4) Dementia, vascular, with delusions (5) Dementia, vascular, with depression (6) Dementia of the Alzheimer's type with early onset with behavioral disturbance (7) Impulse control disorder SHAW CERRATO MD Jul 21, 2018 20:59
[2018-07-21] MEDS: TAMSULOSIN 0.4 MG CAP.ER.24H. PO SCH (21:17)
[2018-07-21] MEDS: MIRTAZAPINE 7.5 MG TABLET. PO SCH (21:17)
[2018-07-21] MEDS: CIPROFLOXACIN HCL 500 MG TABLET PO SCH (21:19)
[2018-07-21] MEDS: POTASSIUM CHLORIDE 20 MEQ TABLET.ER. PO SCH (21:19)
--- NOTE | 2018-07-21 23:26 | PN ---
DATE: 07/20/2018 PSYCHIATRIC PROGRESS NOTE This is a late entry, 07/20, covers elements not covered in my initial note. SUBJECTIVE: I met with the patient in the morning. The patient slept 6-1/2 hours previous night. He had a shower and was shaved, his and daughter came. He has had some constipation and we will start him on senna 8.6 b.i.d. to assist with this. He has difficulty feeding himself and frequently spitting out his food as I tried to feed him. REVIEW OF SYSTEMS: Ambulation impaired, in Broda chair. No CV, , pulmonary, eye, ENT system symptoms on review. Reliability poor. MENTAL STATUS EXAM: Oriented to himself. Insight, judgment, recent and remote memory, attention, concentration, fund of knowledge poor, consistent with his diagnosis mentioned in my initial note. PLAN: No change from initial note. ADDENDUM Given the patient's somewhat apathy, withdrawal, no overt aggression, we will go ahead and stop the Depakote 500 b.i.d. on a trial basis. SHAW CERRATO MD DR: MARY/reed JOB#: [id number] / [id number]
[2018-07-22 05:22] VITALS: BP 124/70
[2018-07-22] MEDS: LACTOBACILLUS RHAMNOSUS GG 1 CAPSULE. PO SCH ×2 (08:33→19:42)
[2018-07-22] MEDS: CIPROFLOXACIN HCL 500 MG TABLET PO SCH ×2 (08:34→19:42)
[2018-07-22] MEDS: POTASSIUM CHLORIDE 20 MEQ TABLET.ER. PO SCH ×3 (08:34→19:42)
[2018-07-22] MEDS: SENNOSIDES 8.6 MG TABLET PO SCH ×2 (08:34→19:42)
[2018-07-22] MEDS: QUEtiapine 25 MG TABLET. PO SCH ×4 (08:34→19:42)
[2018-07-22] MEDS: SERTRALINE 50 MG TABLET. PO SCH (08:34)
[2018-07-22] MEDS: CETIRIZINE HCL 10 MG TABLET PO SCH (08:34)
[2018-07-22] MEDS: ALPRAZolam 0.25 MG TABLET PO SCH (08:35)
[2018-07-22 16:01] VITALS: BP 116/64
[2018-07-22] MEDS: MIRTAZAPINE 7.5 MG TABLET. PO SCH (19:42)
[2018-07-22] MEDS: TAMSULOSIN 0.4 MG CAP.ER.24H. PO SCH (19:42)
--- NOTE | 2018-07-22 20:52 | PDOC ---
Exam Note: Uriah Note: Please also refer to the separate dictated note~for this date of service dictated separately.~Patient seen individually. Discussed the patient with Nursing staff reviewed the chart.~Reviewed interim history and current functioning. Reviewed vital signs,~Labs/ Radiology~and current medications noted below. Continue current treatment with the changes noted in the dictated addendum note Assessment: Vital Signs: Vital Signs Date Time Temp Pulse Resp B/P (MAP) Pulse Ox O2 Delivery O2 Flow Rate FiO2 07/22/18 16:01 97.6 77 20 116/64 (81) 97 07/18/18 16:01 Room Air I&O Intake and Output 07/22/18 07:00 Intake Total 540 ml Output Total 400 ml Balance 140 ml Intake Oral 540 ml Output Urine Total 400 ml # Bowel Movements 1 Current Medications: Meds: Current Medications Acetaminophen (Tylenol) 650 mg PRN Q6HRS PRN PO PAIN / TEMP; Start 07/06/18 at 01:00 Multi-Ingredient Ointment (Analgesic [place]) 1 lawrence PRN QID PRN TP MUSCLE PAIN; Start 07/06/18 at 01:00 Al Hydroxide/Mg Hydroxide (Mylanta Plus Xs) 15 ml PRN AFTMEALHC PRN PO DYSPEPSIA; Start 07/06/18 at 01:00 Magnesium Hydroxide (Milk Of Magnesia) 2,400 mg PRN QHS PRN PO CONSTIPATION Last administered on 07/18/18at 17:49; Start 07/06/18 at 01:00 Citalopram Hydrobromide (CeleXA) 20 mg DAILY PO Last administered on 07/15/18at 09:22; Start 07/06/18 at 09:00; Stop 07/15/18 at 18:48; Status DC Alprazolam (Xanax) 0.5 mg TID PO Last administered on 07/08/18at 14:00; Start 07/06/18 at 09:00; Stop 07/08/18 at 17:06; Status DC Divalproex Sodium (Depakote) 500 mg BID PO ; Start 07/06/18 at 09:00; Stop at 09:31; Status DC Memantine (Namenda) 10 mg BID PO Last administered on 07/08/18at 08:54; Start 07/06/18 at 09:00; Stop 07/08/18 at 17:06; Status DC Quetiapine Fumarate (SEROquel) 50 mg BID PO Last administered on 07/08/18at 08:54 ; Start 07/06/18 at 09:00; Stop 07/08/18 at 17:06; Status DC Rivastigmine (Exelon) 1 patch DAILY TD Last administered on 07/08/18at 08:54; Start 07/06/18 at 09:00; Stop 07/08/18 at 17:06; Status DC Cetirizine HCl (ZyrTEC) 10 mg DAILY PO Last administered on 07/22/18at 08:34; Start 07/06/18 at 09:00 Divalproex Sodium (Depakote Sprinkles) 500 mg BID PO Last administered on at 07:51; Start 07/06/18 at 09:45; Stop 07/20/18 at 18:21; Status DC Olanzapine (ZyPREXA ZYDIS) 2.5 mg PRN Q2HR PRN PO PSYCHOSIS Last administered on 07/21/18at 00:05; Start 07/06/18 at 14:15 Tamsulosin HCl (Flomax) 0.4 mg QHS PO Last administered on 07/10/18at 19:30; Start 07/07/18 at 21:00; Stop 07/11/18 at 18:51; Status DC Vitamin D (Vitamin D3) 50,000 unit WEEKLY PO Last administered on 07/21/18at 08: 27; Start 07/07/18 at 14:15 Hydroxyzine HCl (Atarax) 25 mg PRN Q2HR PRN PO ANXIETY / AGITATION Last administered on 07/15/18at 21:41; Start 07/07/18 at 16:45 Alprazolam (Xanax) 0.25 mg QID PO Last administered on 07/13/18at 21:19; Start 07/08/18 at 21:00; Stop 07/14/18 at 01:16; Status DC Quetiapine Fumarate (SEROquel) 25 mg QID PO Last administered on 07/15/18at 09: 22; Start 07/08/18 at 21:00; Stop 07/15/18 at 12:47; Status DC Mirtazapine (Remeron) 7.5 mg QHS PO Last administered on 07/22/18 19:42; Start 07/09/18 at 21:00 Tamsulosin HCl (Flomax) 0.8 mg QHS PO Last administered on 07/22/18 19:42; Start 07/11/18 at 21:00 Alprazolam (Xanax) 0.25 mg TID PO Last administered on 07/16/18 21:01; Start 07/14/18 at 09:00; Stop 07/16/18 at 23:00; Status DC Alprazolam (Xanax) 0.25 mg BID PO Last administered on 07/19/18 20:25; Start 07/17/18 at 09:00; Stop 07/19/18 at 23:00; Status DC Alprazolam (Xanax) 0.25 mg DAILY PO Last administered on 07/22/18 08:35; Start 07/20/18 at 09:00; Stop 07/22/18 at 23:00 Glycerin (Sani-Supp Adult) 1 supp PRN DAILY PRN [place] CONSTIPATION Last administered on 07/18/18 18:00; Start 07/14/18 at 16:15 Quetiapine Fumarate (SEROquel) 25 mg QID PO Last administered on 07/22/18 19: 42; Start 07/15/18 at 13:00 Sertraline HCl (Zoloft) 50 mg DAILY PO Last administered on 07/22/18at 08:34; Start 07/16/18 at 09:00 Cefpodoxime Proxetil (Vantin) 200 mg BID PO Last administered on 07/21/18 08: 25; Start 07/18/18 at 21:00; Stop 07/21/18 at 14:47; Status DC Lactobacillus Rhamnosus (Culturelle) 1 cap BID PO Last administered on 19:42; Start 07/18/18 at 21:00 Sennosides (Senna) 8.6 mg BID PO Last administered on 07/22/18 19:42; Start at 21:00 Ciprofloxacin (Cipro) 500 mg BID PO Last administered on 07/22/18 19:42; Start 07/21/18 at 21:00 Potassium Chloride (Klor-Con) 20 meq TID PO Last administered on 07/22/18at 19: 42; Start 07/21/18 at 21:00 Active Scripts Active Reported Olanzapine Inj (Olanzapine) 10 Mg Vial 5 Mg IM PRN Q8HRS PRN Cetirizine Hcl 10 Mg Tablet 10 Mg PO DAILY EXELON 4.6mg/24hr (Rivastigmine) 1 Each Patch.td24 1 Patch TD DAILY Seroquel (Quetiapine Fumarate) 50 Mg Tablet 50 Mg PO BID Namenda (Memantine Hcl) 10 Mg Tablet 10 Mg PO BID Divalproex Sodium Er (Divalproex Sodium) 500 Mg Tab.er.24h 500 Mg PO BID Haldol (Haloperidol Lactate) 5 Mg/1 Ml Ampul 2.5 Mg IM PRN Q6HRS PRN Alprazolam 0.5 Mg Tablet 0.5 Mg PO TID Citalopram Hbr (Citalopram Hydrobromide) 20 Mg Tablet 20 Mg PO DAILY I have reviewed the current psychotropics carefully including drug interactions. Risk benefit ratio favors no change other than as noted in my dictated progress note. Diagnosis: Problems: (1) Anxiety disorder (2) Dementia in Alzheimer's disease with delusions (3) Dementia in Alzheimer's disease with depression (4) Dementia, vascular, with delusions (5) Dementia, vascular, with depression (6) Dementia of the Alzheimer's type with early onset with behavioral disturbance (7) Impulse control disorder SHAW CERRATO MD Jul 22, 2018 20:51
--- NOTE | 2018-07-23 02:18 | PN ---
DATE: 07/21/2018 PSYCHIATRIC PROGRESS NOTE This is a late entry 07/21/2018 covers elements not covered in my initial note. SUBJECTIVE: I met with the patient in the evening. The patient slept 6 hours previous evening, somewhat resistive to medications, but takes it in Boost. Speech is word salad. UA is positive. Vantin has been changed to Cipro per culture and sensitivity. REVIEW OF SYSTEMS: Ambulation impaired, in Broda chair. No CV, , pulmonary, eye, ENT system symptoms on review. Reliability poor. MENTAL STATUS EXAM: Oriented to himself. Insight, judgment, recent and remote memory, attention, concentration, fund of knowledge poor, consistent with his diagnosis. He is unable to do serial sevens, remember 0 of 3 objects at one minute. Attention span short. IMPRESSION: Unchanged from initial note. PLAN: No change from initial note. MAN Nalini CERRATO MD DR: MARY/reed JOB#: [id number] / [id number]
[2018-07-23 05:37] VITALS: BP 117/87
[2018-07-23] MEDS: LACTOBACILLUS RHAMNOSUS GG 1 CAPSULE. PO SCH ×2 (09:46→20:02)
[2018-07-23] MEDS: POTASSIUM CHLORIDE 20 MEQ TABLET.ER. PO SCH ×3 (09:46→20:03)
[2018-07-23] MEDS: SERTRALINE 50 MG TABLET. PO SCH (09:46)
[2018-07-23] MEDS: CETIRIZINE HCL 10 MG TABLET PO SCH (09:47)
[2018-07-23] MEDS: CIPROFLOXACIN HCL 500 MG TABLET PO SCH ×2 (09:47→20:03)
[2018-07-23] MEDS: SENNOSIDES 8.6 MG TABLET PO SCH ×2 (09:47→20:02)
[2018-07-23] MEDS: QUEtiapine 25 MG TABLET. PO SCH ×4 (09:47→20:07)
[2018-07-23] MEDS: hydrOXYzine HCL 25 MG TABLET PO PRN ×2 (13:46→21:11)
[2018-07-23 16:02] VITALS: BP 123/71
[2018-07-23] MEDS: MIRTAZAPINE 7.5 MG TABLET. PO SCH (20:03)
[2018-07-23] MEDS: TAMSULOSIN 0.4 MG CAP.ER.24H. PO SCH (20:03)
--- NOTE | 2018-07-23 21:00 | PDOC ---
Exam Note: Uriah Note: Please also refer to the separate dictated note~for this date of service dictated separately.~Patient seen individually. Discussed the patient with Nursing staff reviewed the chart.~Reviewed interim history and current functioning. Reviewed vital signs,~Labs/ Radiology~and current medications noted below. Continue current treatment with the changes noted in the dictated addendum note Assessment: Vital Signs: Vital Signs Date Time Temp Pulse Resp B/P (MAP) Pulse Ox O2 Delivery O2 Flow Rate FiO2 07/23/18 16:02 98.6 67 16 123/71 (88) 95 07/18/18 16:01 Room Air I&O Intake and Output 07/23/18 07:00 Intake Total 1180 ml Output Total 600 ml Balance 580 ml Intake Oral 1180 ml Output Urine Total 600 ml # Bowel Movements 1 Current Medications: Meds: Current Medications Acetaminophen (Tylenol) 650 mg PRN Q6HRS PRN PO PAIN / TEMP; Start 07/06/18 at 01:00 Multi-Ingredient Ointment (Analgesic [place]) 1 lawrence PRN QID PRN TP MUSCLE PAIN; Start 07/06/18 at 01:00 Al Hydroxide/Mg Hydroxide (Mylanta Plus Xs) 15 ml PRN AFTMEALHC PRN PO DYSPEPSIA; Start 07/06/18 at 01:00 Magnesium Hydroxide (Milk Of Magnesia) 2,400 mg PRN QHS PRN PO CONSTIPATION Last administered on 07/18/18at 17:49; Start 07/06/18 at 01:00 Citalopram Hydrobromide (CeleXA) 20 mg DAILY PO Last administered on 07/15/18at 09:22; Start 07/06/18 at 09:00; Stop 07/15/18 at 18:48; Status DC Alprazolam (Xanax) 0.5 mg TID PO Last administered on 07/08/18at 14:00; Start 07/06/18 at 09:00; Stop 07/08/18 at 17:06; Status DC Divalproex Sodium (Depakote) 500 mg BID PO ; Start 07/06/18 at 09:00; Stop at 09:31; Status DC Memantine (Namenda) 10 mg BID PO Last administered on 07/08/18at 08:54; Start 07/06/18 at 09:00; Stop 07/08/18 at 17:06; Status DC Quetiapine Fumarate (SEROquel) 50 mg BID PO Last administered on 07/08/18at 08:54 ; Start 07/06/18 at 09:00; Stop 07/08/18 at 17:06; Status DC Rivastigmine (Exelon) 1 patch DAILY TD Last administered on 07/08/18at 08:54; Start 07/06/18 at 09:00; Stop 07/08/18 at 17:06; Status DC Cetirizine HCl (ZyrTEC) 10 mg DAILY PO Last administered on 07/23/18at 09:47; Start 07/06/18 at 09:00 Divalproex Sodium (Depakote Sprinkles) 500 mg BID PO Last administered on at 07:51; Start 07/06/18 at 09:45; Stop 07/20/18 at 18:21; Status DC Olanzapine (ZyPREXA ZYDIS) 2.5 mg PRN Q2HR PRN PO PSYCHOSIS Last administered on 07/21/18at 00:05; Start 07/06/18 at 14:15 Tamsulosin HCl (Flomax) 0.4 mg QHS PO Last administered on 07/10/18at 19:30; Start 07/07/18 at 21:00; Stop 07/11/18 at 18:51; Status DC Vitamin D (Vitamin D3) 50,000 unit WEEKLY PO Last administered on 07/21/18at 08: 27; Start 07/07/18 at 14:15 Hydroxyzine HCl (Atarax) 25 mg PRN Q2HR PRN PO ANXIETY / AGITATION Last administered on 07/23/18at 13:46; Start 07/07/18 at 16:45 Alprazolam (Xanax) 0.25 mg QID PO Last administered on 07/13/18at 21:19; Start 07/08/18 at 21:00; Stop 07/14/18 at 01:16; Status DC Quetiapine Fumarate (SEROquel) 25 mg QID PO Last administered on 07/15/18at 09: 22; Start 07/08/18 at 21:00; Stop 07/15/18 at 12:47; Status DC Mirtazapine (Remeron) 7.5 mg QHS PO Last administered on 07/23/18 20:03; Start 07/09/18 at 21:00 Tamsulosin HCl (Flomax) 0.8 mg QHS PO Last administered on 07/23/18 20:03; Start 07/11/18 at 21:00 Alprazolam (Xanax) 0.25 mg TID PO Last administered on 07/16/18 21:01; Start 07/14/18 at 09:00; Stop 07/16/18 at 23:00; Status DC Alprazolam (Xanax) 0.25 mg BID PO Last administered on 07/19/18 20:25; Start 07/17/18 at 09:00; Stop 07/19/18 at 23:00; Status DC Alprazolam (Xanax) 0.25 mg DAILY PO Last administered on 07/22/18at 08:35; Start 07/20/18 at 09:00; Stop 07/22/18 at 23:00; Status DC Glycerin (Sani-Supp Adult) 1 supp PRN DAILY PRN [place] CONSTIPATION Last administered on 07/18/18at 18:00; Start 07/14/18 at 16:15 Quetiapine Fumarate (SEROquel) 25 mg QID PO Last administered on 07/23/18 20: 07; Start 07/15/18 at 13:00 Sertraline HCl (Zoloft) 50 mg DAILY PO Last administered on 07/23/18at 09:46; Start 07/16/18 at 09:00 Cefpodoxime Proxetil (Vantin) 200 mg BID PO Last administered on 07/21/18 08: 25; Start 07/18/18 at 21:00; Stop 07/21/18 at 14:47; Status DC Lactobacillus Rhamnosus (Culturelle) 1 cap BID PO Last administered on 20:02; Start 07/18/18 at 21:00 Sennosides (Senna) 8.6 mg BID PO Last administered on 07/23/18 20:02; Start at 21:00 Ciprofloxacin (Cipro) 500 mg BID PO Last administered on 07/23/18 20:03; Start 07/21/18 at 21:00 Potassium Chloride (Klor-Con) 20 meq TID PO Last administered on 07/23/18at 20: 03; Start 07/21/18 at 21:00 Active Scripts Active Reported Olanzapine Inj (Olanzapine) 10 Mg Vial 5 Mg IM PRN Q8HRS PRN Cetirizine Hcl 10 Mg Tablet 10 Mg PO DAILY EXELON 4.6mg/24hr (Rivastigmine) 1 Each Patch.td24 1 Patch TD DAILY Seroquel (Quetiapine Fumarate) 50 Mg Tablet 50 Mg PO BID Namenda (Memantine Hcl) 10 Mg Tablet 10 Mg PO BID Divalproex Sodium Er (Divalproex Sodium) 500 Mg Tab.er.24h 500 Mg PO BID Haldol (Haloperidol Lactate) 5 Mg/1 Ml Ampul 2.5 Mg IM PRN Q6HRS PRN Alprazolam 0.5 Mg Tablet 0.5 Mg PO TID Citalopram Hbr (Citalopram Hydrobromide) 20 Mg Tablet 20 Mg PO DAILY I have reviewed the current psychotropics carefully including drug interactions. Risk benefit ratio favors no change other than as noted in my dictated progress note. Diagnosis: Problems: (1) Anxiety disorder (2) Dementia in Alzheimer's disease with delusions (3) Dementia in Alzheimer's disease with depression (4) Dementia, vascular, with delusions (5) Dementia, vascular, with depression (6) Dementia of the Alzheimer's type with early onset with behavioral disturbance (7) Impulse control disorder SHAW CERRATO MD Jul 23, 2018 21:00
--- NOTE | 2018-07-23 23:40 | PN ---
DATE: 07/22/2018 This late entry on 07/22/2018 covers the elements not covered in my initial note. SUBJECTIVE: I met with the patient in the evening. The patient slept just 3-1/2 hours the previous evening, dozes off and on during the day, Xanax has been discontinued. Family are considering hospice care at discharge. Despite this, he is more awake during the day as I met with him, better since we stopped the Depakote with no increase in agitation. REVIEW OF SYSTEMS: Ambulation impaired, in Broda chair. No CV, , pulmonary, eye, ENT system symptoms on review. Reliability poor. MENTAL STATUS EXAM: Oriented to himself. Insight, judgment, recent and remote memory, attention, concentration, fund of knowledge poor, consistent with his diagnosis as mentioned in my initial note. PLAN: No change from initial note. MAN Nalini CERRATO MD DR: MARY/reed JOB#: [id number] / [id number]
[2018-07-24] MEDS ORDERED: CIPR500T PO (00:36)
[2018-07-24] MEDS ORDERED: TAMS0.4C97 PO (00:37)
[2018-07-24] MEDS ORDERED: METH29OI TP (00:38)
[2018-07-24] MEDS ORDERED: ACET325T9 PO (00:39)
[2018-07-24] MEDS ORDERED: MIRT7.5T8 PO (00:41)
[2018-07-24] MEDS ORDERED: SERT50TA PO (00:42)
[2018-07-24] MEDS ORDERED: HYDR25TA PO (00:45)
[2018-07-24] MEDS ORDERED: MAG30ORA2 PO (00:46)
[2018-07-24] MEDS ORDERED: POTA20TA4 PO (00:46)
[2018-07-24] MEDS ORDERED: GLYC1SUP RC (00:47)
[2018-07-24] MEDS ORDERED: MAGN400O7 PO (00:48)
[2018-07-24] MEDS ORDERED: SENN-79 PO (00:48)
[2018-07-24] MEDS ORDERED: LACT1CAP21 PO (00:49)
[2018-07-24] MEDS ORDERED: CHOL500021 PO (00:49)
[2018-07-24] MEDS ORDERED: OLAN5TAB5 PO (00:49)
[2018-07-24 05:57] VITALS: BP 124/70
[2018-07-24] MEDS: LACTOBACILLUS RHAMNOSUS GG 1 CAPSULE. PO SCH (09:23)
[2018-07-24] MEDS: CETIRIZINE HCL 10 MG TABLET PO SCH (09:23)
[2018-07-24] MEDS: SERTRALINE 50 MG TABLET. PO SCH (09:23)
[2018-07-24] MEDS: POTASSIUM CHLORIDE 20 MEQ TABLET.ER. PO SCH (09:23)
[2018-07-24] MEDS: SENNOSIDES 8.6 MG TABLET PO SCH (09:23)
[2018-07-24] MEDS: CIPROFLOXACIN HCL 500 MG TABLET PO SCH (09:23)
[2018-07-24] MEDS: QUEtiapine 25 MG TABLET. PO SCH (09:23)
[2018-07-24] MEDS ORDERED: QUET25TA5 PO (10:36)
--- NOTE | 2018-07-24 17:22 | PDOC ---
Exam Note: Uriah Note: Please also refer to the separate dictated note~for this date of service dictated separately.~Patient seen individually. Discussed the patient with Nursing staff reviewed the chart.~Reviewed interim history and current functioning. Reviewed vital signs,~Labs/ Radiology~and current medications noted below. Continue current treatment with the changes noted in the dictated addendum note Assessment: Vital Signs: Vital Signs Date Time Temp Pulse Resp B/P (MAP) Pulse Ox O2 Delivery O2 Flow Rate FiO2 07/24/18 05:57 97.6 63 18 124/70 (88) 97 07/18/18 16:01 Room Air I&O Intake and Output 07/24/18 07:00 Intake Total 600 ml Output Total 550 ml Balance 50 ml Intake Oral 600 ml Output Urine Total 550 ml Current Medications: Meds: Current Medications Acetaminophen (Tylenol) 650 mg PRN Q6HRS PRN PO PAIN / TEMP; Start 07/06/18 at 01:00; Stop 07/24/18 at 12:06; Status DC Multi-Ingredient Ointment (Analgesic [place]) 1 dana PRN QID PRN TP MUSCLE PAIN; Start 07/06/18 at 01:00; Stop 07/24/18 at 12:06; Status DC Al Hydroxide/Mg Hydroxide (Mylanta Plus Xs) 15 ml PRN AFTMEALHC PRN PO DYSPEPSIA; Start 07/06/18 at 01:00; Stop 07/24/18 at 12:06; Status DC Magnesium Hydroxide (Milk Of Magnesia) 2,400 mg PRN QHS PRN PO CONSTIPATION Last administered on 07/18/18at 17:49; Start 07/06/18 at 01:00; Stop 07/24/18 at 12:06; Status DC Citalopram Hydrobromide (CeleXA) 20 mg DAILY PO Last administered on 07/15/18at 09:22; Start 07/06/18 at 09:00; Stop 07/15/18 at 18:48; Status DC Alprazolam (Xanax) 0.5 mg TID PO Last administered on 07/08/18at 14:00; Start 07/06/18 at 09:00; Stop 07/08/18 at 17:06; Status DC Divalproex Sodium (Depakote) 500 mg BID PO ; Start 07/06/18 at 09:00; Stop at 09:31; Status DC Memantine (Namenda) 10 mg BID PO Last administered on 07/08/18at 08:54; Start 07/06/18 at 09:00; Stop 07/08/18 at 17:06; Status DC Quetiapine Fumarate (SEROquel) 50 mg BID PO Last administered on 07/08/18at 08:54 ; Start 07/06/18 at 09:00; Stop 07/08/18 at 17:06; Status DC Rivastigmine (Exelon) 1 patch DAILY TD Last administered on 07/08/18at 08:54; Start 07/06/18 at 09:00; Stop 07/08/18 at 17:06; Status DC Cetirizine HCl (ZyrTEC) 10 mg DAILY PO Last administered on 07/24/18at 09:23; Start 07/06/18 at 09:00; Stop 07/24/18 at 12:06; Status DC Divalproex Sodium (Depakote Sprinkles) 500 mg BID PO Last administered on at 07:51; Start 07/06/18 at 09:45; Stop 07/20/18 at 18:21; Status DC Olanzapine (ZyPREXA ZYDIS) 2.5 mg PRN Q2HR PRN PO PSYCHOSIS Last administered on 07/21/18at 00:05; Start 07/06/18 at 14:15; Stop 07/24/18 at 12:06; Status DC Tamsulosin HCl (Flomax) 0.4 mg QHS PO Last administered on 07/10/18at 19:30; Start 07/07/18 at 21:00; Stop 07/11/18 at 18:51; Status DC Vitamin D (Vitamin D3) 50,000 unit WEEKLY PO Last administered on 07/21/18at 08: 27; Start 07/07/18 at 14:15; Stop 07/24/18 at 12:06; Status DC Hydroxyzine HCl (Atarax) 25 mg PRN Q2HR PRN PO ANXIETY / AGITATION Last administered on 07/23/18at 21:11; Start 07/07/18 at 16:45; Stop 07/24/18 at 12:06 ; Status DC Alprazolam (Xanax) 0.25 mg QID PO Last administered on 07/13/18 21:19; Start 07/08/18 at 21:00; Stop 07/14/18 at 01:16; Status DC Quetiapine Fumarate (SEROquel) 25 mg QID PO Last administered on 07/15/18at 09: 22; Start 07/08/18 at 21:00; Stop 07/15/18 at 12:47; Status DC Mirtazapine (Remeron) 7.5 mg QHS PO Last administered on 07/23/18at 20:03; Start 07/09/18 at 21:00; Stop 07/24/18 at 12:06; Status DC Tamsulosin HCl (Flomax) 0.8 mg QHS PO Last administered on 07/23/18at 20:03; Start 07/11/18 at 21:00; Stop 07/24/18 at 12:06; Status DC Alprazolam (Xanax) 0.25 mg TID PO Last administered on 07/16/18at 21:01; Start 07/14/18 at 09:00; Stop 07/16/18 at 23:00; Status DC Alprazolam (Xanax) 0.25 mg BID PO Last administered on 07/19/18at 20:25; Start 07/17/18 at 09:00; Stop 07/19/18 at 23:00; Status DC Alprazolam (Xanax) 0.25 mg DAILY PO Last administered on 07/22/18at 08:35; Start 07/20/18 at 09:00; Stop 07/22/18 at 23:00; Status DC Glycerin (Sani-Supp Adult) 1 supp PRN DAILY PRN [place] CONSTIPATION Last administered on 07/18/18at 18:00; Start 07/14/18 at 16:15; Stop 07/24/18 at 12:06 ; Status DC Quetiapine Fumarate (SEROquel) 25 mg QID PO Last administered on 07/24/18at 09: 23; Start 07/15/18 at 13:00; Stop 07/24/18 at 12:06; Status DC Sertraline HCl (Zoloft) 50 mg DAILY PO Last administered on 07/24/18at 09:23; Start 07/16/18 at 09:00; Stop 07/24/18 at 12:06; Status DC Cefpodoxime Proxetil (Vantin) 200 mg BID PO Last administered on 07/21/18at 08: 25; Start 07/18/18 at 21:00; Stop 07/21/18 at 14:47; Status DC Lactobacillus Rhamnosus (Culturelle) 1 cap BID PO Last administered on at 09:23; Start 07/18/18 at 21:00; Stop 07/24/18 at 12:06; Status DC Sennosides (Senna) 8.6 mg BID PO Last administered on 07/24/18at 09:23; Start at 21:00; Stop 07/24/18 at 12:06; Status DC Ciprofloxacin (Cipro) 500 mg BID PO Last administered on 07/24/18at 09:23; Start 07/21/18 at 21:00; Stop 07/24/18 at 12:06; Status DC Potassium Chloride (Klor-Con) 20 meq TID PO Last administered on 07/24/18at 09: 23; Start 07/21/18 at 21:00; Stop 07/24/18 at 12:06; Status DC Active Scripts Active Reported Seroquel (Quetiapine Fumarate) 25 Mg Tablet 25 Mg PO QID Zyprexa Zydis (Olanzapine) 5 Mg Tab.rapdis 2.5 Mg PO PRN Q2HR PRN D3-50 (Cholecalciferol (Vitamin D3)) 50,000 Unit Capsule 50,000 Unit PO WEEKLY administer every Saturday Culturelle (Lactobacillus Rhamnosus Gg) 1 Each Capsule 1 Each PO BID Senna (Sennosides) 8.6 Mg Tablet 8.6 Mg PO BID Milk Of Magnesia (Magnesium Hydroxide) 400 Mg/5 Ml Oral.susp 2,400 Mg PO PRN QHS PRN Adult Glycerin (Glycerin) 1 Each Supp.rect 1 Each RC PRN DAILY PRN Mag-Al Plus Xs Suspension (Mag Hydrox/Al Hydrox/Simeth) 30 Ml Oral.susp 15 Ml PO PRN AFTMEALHC PRN Klor-Con M20 (Potassium Chloride) 20 Meq Tab.er.prt 20 Meq PO TID Hydroxyzine Hcl 25 Mg Tablet 25 Mg PO PRN Q2HR PRN Zoloft (Sertraline Hcl) 50 Mg Tablet 50 Mg PO DAILY Mirtazapine 7.5 Mg Tablet 7.5 Mg PO QHS Tylenol (Acetaminophen) 325 Mg Tablet 650 Mg PO PRN Q6HRS PRN Analgesic [place] (Methyl Salicylate/Menthol) 28 Gm Oint...g. 1 Dana TP PRN QID PRN Flomax (Tamsulosin Hcl) 0.4 Mg Cap.er.24h 0.8 Mg PO QHS Ciprofloxacin Hcl 500 Mg Tablet 500 Mg PO BID 7 Days End date: 07/28/182099 Cetirizine Hcl 10 Mg Tablet 10 Mg PO DAILY I have reviewed the current psychotropics carefully including drug interactions. Risk benefit ratio favors no change other than as noted in my dictated progress note. Diagnosis: Problems: (1) Impulse control disorder (2) Dementia of the Alzheimer's type with early onset with behavioral disturbance (3) Dementia, vascular, with depression (4) Dementia, vascular, with delusions (5) Dementia in Alzheimer's disease with depression (6) Dementia in Alzheimer's disease with delusions (7) Anxiety disorder SHAW CERRATO MD Jul 24, 2018 17:22
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
--- NOTE | 2018-07-25 20:32 | PN ---
DATE: 07/23/2018 PSYCHIATRIC PROGRESS NOTE This late entry 07/23/2018 covers elements, not covered in my initial note. SUBJECTIVE: I met with the patient in the evening. Overall, the patient remains confused, but more awake, alert and interactive since we have stopped the Depakote. He was agitated around midnight. Received Zyprexa, Zydis, was pulling on his catheter. Slept 4-1/4 hours. At 1:00 p.m., he was trying to pull on the catheter to regain, but redirects. Plan is to transition to [facility], 07/24/2018. REVIEW OF SYSTEMS: Ambulation impaired. No CV, , pulmonary, eye, ENT system symptoms on review. Reliability poor. MENTAL STATUS EXAM: Oriented to himself. Insight, judgment, recent and remote memory, attention, concentration, fund of knowledge poor, consistent with his diagnosis mentioned in my initial note. PLAN: No change from initial note. SHAW CERRATO MD DR: MARY/reed JOB#: [id number] / [id number]
== END 2018-07-24 12:06 | DRG 57 ==
LOC: GEROPSY 00:41
PROVIDERS: ADMIT Psychiatry & Neurology Psychiatry; ATTEND Psychiatry & Neurology Psychiatry
DX: G30.0 Alzheimer's disease with early onset (principal); F02.81 Dementia in other diseases classified elsewhere, unspecified severity, with behavioral disturbance; F01.51 Vascular dementia, unspecified severity, with behavioral disturbance; F41.9 Anxiety disorder, unspecified; F32.9 Major depressive disorder, single episode, unspecified; F63.9 Impulse disorder, unspecified; R63.3 Feeding difficulties; Z66 Do not resuscitate; Z79.899 Other long term (current) drug therapy
CPT/HCPCS: 36415; 74018; 80053; 80061; 80164; 81001; 82306; 82607; 83036; 83540; 83550; 83735; 84436; 84443; 84480; 85025; 86592; 87086; 87186; 92610; 97110; 97116; 97530; 97535; 99285-25